=== PATIENT | female | born 1955 | race Caucasian/White ===

== ENCOUNTER → 2019-11-23 | Day surgery (SDC) | payer MEDICARE | LOC: CATHCVL 14:26 | PROVIDERS: ATTEND Internal Medicine Infectious Disease | DX: L03.114 Cellulitis of left upper limb (principal); I10 Essential (primary) hypertension; J44.9 Chronic obstructive pulmonary disease, unspecified; E87.1 Hypo-osmolality and hyponatremia; E66.9 Obesity, unspecified; Z88.1 Allergy status to other antibiotic agents; G62.9 Polyneuropathy, unspecified; Z98.890 Other specified postprocedural states; Z79.51 Long term (current) use of inhaled steroids; Z79.899 Other long term (current) drug therapy; Z91.012 Allergy to eggs; Z88.0 Allergy status to penicillin; Z88.8 Allergy status to other drugs, medicaments and biological substances; Z68.34 Body mass index [BMI] 34.0-34.9, adult; Z80.1 Family history of malignant neoplasm of trachea, bronchus and lung; Z80.0 Family history of malignant neoplasm of digestive organs; Z82.49 Family history of ischemic heart disease and other diseases of the circulatory system | CPT/HCPCS: 36410; 76937; C1751 ==

== ENCOUNTER → 2019-11-27 | Day surgery (SDC) | payer MEDICARE ==
[2019-11-27 14:01] VITALS: BP 170/80; PULSE 67; RESP 16; TEMP 97.8
--- NOTE | 2019-11-27 15:20 | XR ---
EXAMINATION TYPE: XR humerus RT DATE OF EXAM: 11/27/2019 COMPARISON: NONE HISTORY: Broken midline catheter TECHNIQUE: 2 views submitted. FINDINGS: The osseous structures are intact and the joint spaces are preserved. Calcification of soft tissues noted. No midline catheter is seen with certainty. IMPRESSION: 1. No acute osseous abnormality.
--- NOTE | 2019-11-27 15:20 | XR ---
EXAMINATION TYPE: XR chest 1V DATE OF EXAM: 11/27/2019 COMPARISON: NONE HISTORY: Broken midline catheter TECHNIQUE: Single frontal view of the chest is obtained. FINDINGS: A linear changes are seen in the left upper lobe likely related to scar or atelectasis. A central venous catheter appears to be present in the soft tissues adjacent to the left arm extending toward the axilla. Correlate clinically. Assessment for catheter within the heart is limited. No over t failure. No pleural effusion or pneumothorax. Arthropathy of the shoulder. IMPRESSION: 1. Suggestion of possible catheter along the inner margin of the left upper extremity the level of th e biceps. Correlate clinically.
--- NOTE | 2019-11-27 16:11 | XR ---
EXAMINATION TYPE: XR cervical spine limited DATE OF EXAM: 11/27/2019 COMPARISON: NONE HISTORY: Broken midline catheter TECHNIQUE: 2 view submitted FINDINGS: Calcification soft tissue left neck likely related carotid arteries. Cervical spine demonst rate the level C5-6. Mild hypertrophic changes. No metallic foreign body. IMPRESSION: Mild degenerative change
--- NOTE | 2019-11-27 16:11 | XR ---
EXAMINATION TYPE: XR abdomen 1V DATE OF EXAM: 11/27/2019 COMPARISON: NONE HISTORY: Broken midline catheter TECHNIQUE: One view abdominal series FINDINGS: The osseous structures are intact. The bowel gas pattern is nonspecific bowel gas is noted which may limit sensitivity in detecting foreign body. Scoliosis with degenerative change of the spine. There are subsegmental consolidation in the left perihilar region. IMPRESSION: 1. Nonspecific abdomen
--- NOTE | 2019-11-27 16:14 | XR ---
EXAMINATION TYPE: XR femur bilateral DATE OF EXAM: 11/27/2019 CLINICAL HISTORY: Possible broken midline catheter TECHNIQUE: Two views of the bilateral femur are obtained. COMPARISON: None FINDINGS: Concentric narrowing of the hip joint. No metallic foreign body. Soft tissue calcification on the right. Nonspecific density overlying the right femoral head. IMPRESSION: 1. Arthropathy. No metallic foreign body. Nonspecific density overlying the right femoral head for wh ich dedicated right hip series recommended.
--- NOTE | 2019-11-27 16:56 | XR ---
EXAMINATION TYPE: XR Hip Complete RT DATE OF EXAM: 11/27/2019 COMPARISON: NONE HISTORY: Midline catheter TECHNIQUE: 2 views submitted FINDINGS: There is no evidence of erosive change or acute fracture. Mild concentric narrowing the joint space. No definite definite radio metallic foreign body. IMPRESSION: 1. No definite radio metallic foreign body..
== END ==
LOC: CATHCVL 12:59
PROVIDERS: ATTEND Internal Medicine Infectious Disease
DX: Z45.2 Encounter for adjustment and management of vascular access device (principal); T82.514A Breakdown (mechanical) of infusion catheter, initial encounter; L03.114 Cellulitis of left upper limb
CPT/HCPCS: 36410; 76937; 72040; 73502; 73552; 73060; 71045; 74018; C1751

== ENCOUNTER → 2022-08-28 | Outpatient (CLI) | payer MEDICARE ==
[2022-08-28 20:02] LABS: HCT 28.9 % (37.2-46.3); MCH 30.1 pg (27.0-32.0); MCHC 31.1 g/dL (32.0-37.0); MCV 96.7 fL (80.0-97.0); Mean Platelet Volume 10.1 fL (9.5-12.2); NRBC Per 100 WBC 0 /100 WBCS (0.0-0.0); Platelet Count 318 X 10*3/uL (140-440); RBC 2.99 X 10*6/uL (4.10-5.20); RDW 16.7 % (11.5-14.5); WBC 5.76 X 10*3/uL (4.50-10.00)
[2022-08-28 20:11] LABS: African American GFR (CKD) 45.9 (60.0-200.0); Anion Gap 12.1 mmol/L (10.00-18.00); BUN/Creat Ratio 18.14 Ratio (12.00-20.00); Blood Urea Nitrogen 25.4 mg/dL (9.0-27.0); Calcium 8.7 mg/dL (8.7-10.3); Carbon Dioxide 28.9 mmol/L (20.0-27.5); Non-African American GFR(CKD) 39.6 (60.0-200.0); Potassium 3.8 mmol/L (3.5-5.5)
== END ==
LOC: LABWHC1 12:35
PROVIDERS: ATTEND Internal Medicine Cardiovascular Disease
DX: I50.31 Acute diastolic (congestive) heart failure (principal)
CPT/HCPCS: 36415; 80048; 83880; 84443; 85027

== ENCOUNTER 2023-07-02 18:30 | Inpatient (IN) | payer MEDICARE ==
--- NOTE | 2023-07-02 18:51 | ED ---
General Adult HPI - General Source: patient, family, RN notes reviewed Mode of arrival: wheelchair Limitations: no limitations <Billie Field - Last Filed: 07/02/23 18:51> - History of Present Illness -: unknown Consistency: constant Improves with: none Associated Symptoms: confusion <Jim Cummings - Last Filed: 07/02/23 21:53> - General Chief complaint: Weakness Stated complaint: abnormal labs Time Seen by Provider: 07/02/23 18:45 - History of Present Illness Initial comments: This is a 67-year-old female who presents to the emergency department for abnormal labs. Patient states that she was advised by Dr. Mark, cardiology, to come to the emergency department for low potassium and low sodium. Her son states that she's been increasingly weak and confused over the last 4 days. She has had problems with low sodium and potassium in the past, states that this has been an intermittent problem since 2018 and she is unsure why. Denies any chest pain or shortness of breath. Patient does wear oxygen at home. (Billie Field) This is a 67-year-old female to the ER for evaluation of abnormal outpatient lab testing. Patient was told to come to the emergency room for low electrolytes. Patient has been increasingly weak confused and not acting appropriate for a few days now (Jim Cummings) - Related Data Allergies Allergy/AdvReac Type Severity Reaction Status Date / Time cefuroxime [From Ceftin] Allergy Rash/Hives Verified 11/23/19 15:03 ofloxacin [From Floxin] Allergy Rash/Hives Verified 11/23/19 15:03 amoxicillin [From Augmentin] AdvReac Diarrhea Verified 11/23/19 15:03 clavulanic acid AdvReac Diarrhea Verified 11/23/19 15:03 [From Augmentin] Review of Systems ROS Other: All systems not noted in ROS Statement are negative. <Billie Field - Last Filed: 07/02/23 18:51> ROS Other: All systems not noted in ROS Statement are negative. <Jim Cummings - Last Filed: 07/02/23 21:53> ROS Statement: Those systems with pertinent positive or pertinent negative responses have been documented in the HPI. Past Medical History Past Medical History: Heart Failure, COPD, Hyperlipidemia, Hypertension, Renal Disease Additional Past Medical History / Comment(s): liver disease Past Surgical History: Back Surgery, Orthopedic Surgery Additional Past Surgical History / Comment(s): facial reconstructions Smoking Status: Former smoker <Billie Field - Last Filed: 07/02/23 18:51> General Exam Limitations: no limitations <Billie Field - Last Filed: 07/02/23 18:51> General appearance: alert, in no apparent distress Head exam: Present: atraumatic, normocephalic, normal inspection Eye exam: Present: normal appearance, PERRL, EOMI. Absent: scleral icterus, conjunctival injection, periorbital swelling ENT exam: Present: normal exam, mucous membranes moist Neck exam: Present: normal inspection. Absent: tenderness, meningismus, lymphadenopathy Respiratory exam: Present: normal lung sounds bilaterally. Absent: respiratory distress, wheezes, rales, rhonchi, stridor Cardiovascular Exam: Present: regular rate, normal rhythm, normal heart sounds. Absent: systolic murmur, diastolic murmur, rubs, gallop, clicks GI/Abdominal exam: Present: soft, normal bowel sounds. Absent: distended, tenderness, guarding, rebound, rigid Extremities exam: Present: normal inspection, full ROM, normal capillary refill. Absent: tenderness, pedal edema, joint swelling, calf tenderness Back exam: Present: normal inspection Neurological exam: Present: alert, oriented X3, CN II-XII intact Psychiatric exam: Present: normal affect, normal mood Skin exam: Present: warm, dry, intact, normal color. Absent: rash <Jim Cummings - Last Filed: 07/02/23 21:53> - General Exam Comments Initial Comments: Visual Physical Exam Vital signs reviewed General: Well-appearing, nontoxic, no acute distress. Head: Normocephalic, atraumatic Eyes: PERRLA, EOMI ENT: Airway patent Chest: Nonlabored breathing Skin: No visual rash, normal skin tone Neuro: Alert and oriented 3 Musculoskeletal: No gross abnormalities (Billie Field) Course <Jim Cummings - Last Filed: 07/02/23 21:53> Vital Signs 07/02/23 07/02/23 18:36 20:18 Temperature 98.3 F Pulse Rate 87 82 Respiratory 20 18 Rate Blood Pressure 103/63 112/58 O2 Sat by Pulse 99 98 Oximetry - Reevaluation(s) Reevaluation #1: 07/02/23 21:51 Medical record is reviewed (Jim Cummings) Reevaluation #2: 07/02/23 21:51 Patient symptoms unchanged (Jim Cummings) Reevaluation #3: 07/02/23 21:52 Patient informed of results and questions answered (Jim Cummings) Reevaluation #4: Was pt. sent in by a medical professional or institution (, [facility], [facility] [facility], urgent care, hospital, or fdc...) When possible be specific @ -no Did you speak to anyone other than the patient for history (EMS, parent, family, police, friend...)? What history was obtained from this source @ -no Did you review nursing and triage notes (agree or disagree)? Why? @ -agree Are old charts reviewed (outside hosp., previous admission, EMS record, old EKG, old radiological studies, urgent care reports/EKG's, fdc records)? Report findings @ -yes Differential Diagnosis (chest pain, altered mental status, abdominal pain women, abdominal pain men, vaginal bleeding, weakness, fever, dyspnea, syncope, headache, dizziness, GI bleed, back pain, seizure, CVA, palpatations, mental health, musculoskeletal)? @ -prior EKG interpreted by me (3pts min.). @ -yes X-rays interpreted by me (1pt min.). @ -yes negative for acute disease CT interpreted by me (1pt min.). @ -no U/S interpreted by me (1pt. min.). @ -no What testing was considered but not performed or refused? (CT, X-rays, U/S, labs)? Why? @ -none What meds were considered but not given or refused? Why? @ -none Did you discuss the management of the patient with other professionals (professionals i.e. PAULETTE Manriquez, WALL CLEANER, lab, RT, psych nurse, socially responsible investment adviser, box office agent, teacher, forest fire officer, case manager specialist)? Give summary @ -no Was smoking cessation discussed for >3mins.? @ -no Was critical care preformed (if so, how long)? @ -no Were there social determinants of health that impacted care today? How? (Homelessness, low income, unemployed, alcoholism, drug addiction, transportation, low edu. Level, literacy, decrease access to med. care, long-term, rehab)? @ -none Was there de-escalation of care discussed even if they declined (Discuss DNR or withdrawal of care, Hospice)? DNR status @ -no What co-morbidities impacted this encounter? (DM, HTN, Smoking, COPD, CAD, Cancer, CVA, ARF, Chemo, Hep., AIDS, mental health diagnosis, sleep apnea, morbid obesity)? @ -none Was patient admitted / discharged? Hospital course, mention meds given and route, prescriptions, significant lab abnormalities, going to OR and other pertinent info. @ - Undiagnosed new problem with uncertain prognosis? @ -no Drug Therapy requiring intensive monitoring for toxicity (Heparin, Nitro, Insulin, Cardizem)? @ -no Were any procedures done? @ -no Diagnosis/symptom? @ - Acute, or Chronic, or Acute on Chronic? @ -Acute Uncomplicated (without systemic symptoms) or Complicated (systemic symptoms)? @ -Complicated Side effects of treatment? @ -no Exacerbation, Progression, or Severe Exacerbation? @ -exacerbation Poses a threat to life or bodily function? How? (Chest pain, USA, MS, pneumonia, PE, COPD, DKA, ARF, appy, cholecystitis, CVA, Diverticulitis, Homicidal, Suicidal, threat to staff... and all critical care pts) @ -yes (Jim Cummings) Reevaluation #5: Differential Altered Mental Status: Hypoglycemia, DKA, hypercapnia, ETOH, overdose, CO poisoning, trauma, myxedema coma, HTN encephalopathy, infection, encephalitis, psychosis, intercranial hemorrhage, hepatic encephalopathy, meningitis, CVA, this is not meant to be an all-inclusive list (Jim Cummings) - Consultations Consultation #1: Spoke with Dr. Nair who agrees to admit this patient (Jim Cummings) Medical Decision Making <Billie Field - Last Filed: 07/02/23 18:51> - Lab Data Result diagrams: 07/02/23 18:53 07/02/23 18:53 - Radiology Data Radiology results: report reviewed (CT of the abdomen pelvis as well as ultrasound renals and bladder are negative for acute disease), image reviewed <Jim Cummings - Last Filed: 07/02/23 21:53> - Medical Decision Making I performed the QuickNote portion of this chart. Signed Billie Field PA-C. (Billie Field) 67 female will be admitted for altered mental status and new acute kidney injury acute renal failure significant elevated BUN and creatinine with low sodium and low potassium (Jim Cummings) - Lab Data Lab Results 07/02/23 07/02/23 07/02/23 Range/Units 18:53 18:53 18:53 WBC 30.1 H (3.8-10.6) k/uL RBC 3.01 L (3.80-5.40) m/uL Hgb 9.6 L (11.4-16.0) gm/dL Hct 29.1 L (34.0-46.0) % MCV 96.7 (80.0-100.0) fL MCH 31.8 (25.0-35.0) pg MCHC 32.9 (31.0-37.0) g/dL RDW 12.8 (11.5-15.5) % Plt Count 315 (150-450) k/uL MPV 7.6 Neutrophils % (Manual) 95 % Lymphocytes % (Manual) 2 % Monocytes % (Manual) 2 % Eosinophils % (Manual) 1 % Neutrophils # (Manual) 28.60 H (1.3-7.7) k/uL Lymphocytes # (Manual) 0.60 L (1.0-4.8) k/uL Monocytes # (Manual) 0.60 (0-1.0) k/uL Eosinophils # (Manual) 0.30 (0-0.7) k/uL Nucleated RBCs 0 (0-0) /100 WBC Manual Slide Review Performed PT 10.0 (10.0-12.5) sec INR 0.9 (<1.2) APTT 26.1 (22.0-30.0) sec Sodium 129 L (137-145) mmol/L Potassium 3.2 L (3.5-5.1) mmol/L Chloride 90 L (98-107) mmol/L Carbon Dioxide 29 (22-30) mmol/L Anion Gap 10 mmol/L BUN 126 H* (7-17) mg/dL Creatinine 2.35 H (0.52-1.04) mg/dL Est GFR (CKD-EPI)AfAm 24 (>60 ml/min/1.73 sqM) Est GFR (CKD-EPI)NonAf 21 (>60 ml/min/1.73 sqM) Glucose 126 H (74-99) mg/dL Plasma Lactic Acid Jordin (0.7-2.0) mmol/L Calcium 9.1 (8.4-10.2) mg/dL Phosphorus 3.7 (2.5-4.5) mg/dL Magnesium 1.4 L (1.6-2.3) mg/dL Total Bilirubin 0.5 (0.2-1.3) mg/dL AST 23 (14-36) U/L ALT 13 (4-34) U/L Alkaline Phosphatase 94 (38-126) U/L Troponin I (0.000-0.034) ng/mL Total Protein 6.7 (6.3-8.2) g/dL Albumin 3.8 (3.5-5.0) g/dL Urine Color Urine Appearance (Clear) Urine pH (5.0-8.0) Ur Specific [place] (1.001-1.035) Urine Protein (Negative) Urine Glucose (UA) (Negative) Urine Ketones (Negative) Urine Blood (Negative) Urine Nitrite (Negative) Urine Bilirubin (Negative) Urine Urobilinogen (<2.0) mg/dL Ur Leukocyte Esterase (Negative) Urine RBC (0-5) /hpf Urine WBC (0-5) /hpf Urine Bacteria (None) /hpf 07/02/23 07/02/23 07/02/23 Range/Units 18:53 18:53 21:06 WBC (3.8-10.6) k/uL RBC (3.80-5.40) m/uL Hgb (11.4-16.0) gm/dL Hct (34.0-46.0) % MCV (80.0-100.0) fL MCH (25.0-35.0) pg MCHC (31.0-37.0) g/dL RDW (11.5-15.5) % Plt Count (150-450) k/uL MPV Neutrophils % (Manual) % Lymphocytes % (Manual) % Monocytes % (Manual) % Eosinophils % (Manual) % Neutrophils # (Manual) (1.3-7.7) k/uL Lymphocytes # (Manual) (1.0-4.8) k/uL Monocytes # (Manual) (0-1.0) k/uL Eosinophils # (Manual) (0-0.7) k/uL Nucleated RBCs (0-0) /100 WBC Manual Slide Review PT (10.0-12.5) sec INR (<1.2) APTT (22.0-30.0) sec Sodium (137-145) mmol/L Potassium (3.5-5.1) mmol/L Chloride (98-107) mmol/L Carbon Dioxide (22-30) mmol/L Anion Gap mmol/L BUN (7-17) mg/dL Creatinine (0.52-1.04) mg/dL Est GFR (CKD-EPI)AfAm (>60 ml/min/1.73 sqM) Est GFR (CKD-EPI)NonAf (>60 ml/min/1.73 sqM) Glucose (74-99) mg/dL Plasma Lactic Acid Jordin 0.8 (0.7-2.0) mmol/L Calcium (8.4-10.2) mg/dL Phosphorus (2.5-4.5) mg/dL Magnesium (1.6-2.3) mg/dL Total Bilirubin (0.2-1.3) mg/dL AST (14-36) U/L ALT (4-34) U/L Alkaline Phosphatase (38-126) U/L Troponin I 0.066 H* (0.000-0.034) ng/mL Total Protein (6.3-8.2) g/dL Albumin (3.5-5.0) g/dL Urine Color Colorless Urine Appearance Clear (Clear) Urine pH 6.0 (5.0-8.0) Ur Specific [place] 1.009 (1.001-1.035) Urine Protein Negative (Negative) Urine Glucose (UA) Negative (Negative) Urine Ketones Negative (Negative) Urine Blood Negative (Negative) Urine Nitrite Negative (Negative) Urine Bilirubin Negative (Negative) Urine Urobilinogen <2.0 (<2.0) mg/dL Ur Leukocyte Esterase Small H (Negative) Urine RBC <1 (0-5) /hpf Urine WBC 6 H (0-5) /hpf Urine Bacteria Rare H (None) /hpf Disposition <Billie Field - Last Filed: 07/02/23 18:51> Is patient prescribed a controlled substance at d/c from ED?: No Time of Disposition: 22:00 <Jim Cummings - Last Filed: 07/02/23 21:53> Clinical Impression: Acute renal failure, Dehydration, Hyponatremia, Hypokalemia, MAXINE (acute kidney injury), Altered mental state Disposition: ADMITTED IP TO THIS HOSP Condition: Fair Referrals: Mike Champion MD [Primary Care Provider] - 1-2 days
[2023-07-02 19:05] LABS: HCT 29.1 % (34.0-46.0); HGB 9.6 gm/dL (11.4-16.0); MCH 31.8 pg (25.0-35.0); MCHC 32.9 g/dL (31.0-37.0); MCV 96.7 fL (80.0-100.0); Mean Platelet Volume 7.6; Platelet Count 315 k/uL (150-450); RBC 3.01 m/uL (3.80-5.40); RDW 12.8 % (11.5-15.5); WBC 30.1 k/uL (3.8-10.6)
[2023-07-02 19:14] LABS: ALT 13 U/L (4-34); AST 23 U/L (14-36); African American GFR (CKD) 24 (>60 ml/min/1.73 sqM); Albumin 3.8 g/dL (3.5-5.0); Alkaline Phosphatase 94 U/L (38-126); Anion Gap 10 mmol/L; Calcium 9.1 mg/dL (8.4-10.2); Carbon Dioxide 29 mmol/L (22-30); Chloride 90 mmol/L (98-107); Glucose 126 mg/dL (74-99); Magnesium 1.4 mg/dL (1.6-2.3); Non-African American GFR(CKD) 21 (>60 ml/min/1.73 sqM); Phosphorus 3.7 mg/dL (2.5-4.5); Potassium 3.2 mmol/L (3.5-5.1); Sodium 129 mmol/L (137-145); Total Bilirubin 0.5 mg/dL (0.2-1.3); Total Protein 6.7 g/dL (6.3-8.2)
[2023-07-02 19:19] LABS: INR 0.9 (<1.2); Partial Thromboplastin Time 26.1 sec (22.0-30.0)
--- NOTE | 2023-07-02 19:24 | XR ---
EXAMINATION TYPE: XR chest 2V DATE OF EXAM: 07/02/2023 COMPARISON: 11/27/2019 HISTORY: 67-year-old female with weakness, critically low sodium and potassium. TECHNIQUE: AP and lateral views FINDINGS: Low lung volumes with crowded vascular markings. There appear to be old healed fracture deformities r ight lateral chest wall, new from 2019. Interstitial density is increased. Low lung volumes. Borderli ne heart size. No consolidation or pleural effusion. IMPRESSION: Increased interstitial markings may in part relate to vascular crowding from hypoventilatory changes. Correlate to exclude mild pulmonary vascular congestion.
[2023-07-02 19:27] LABS: Blood Urea Nitrogen 126 mg/dL (7-17)
[2023-07-02 19:37] LABS: Neutrophils % (M) 95 %; Nucleated Red Blood Cells 0 /100 WBC (0-0); Total Cells Counted 100
--- NOTE | 2023-07-02 20:22 | CT ---
EXAMINATION TYPE: CT abdomen pelvis wo con DATE OF EXAM: 07/02/2023 COMPARISON: None HISTORY: 67-year-old female confusion, weakness and abdominal pain CT DLP: 760.8 mGycm. Automated exposure control for dose reduction was used. TECHNIQUE: Contiguous axial scanning of the abdomen and pelvis without IV contrast. Coronal and sagit ro reconstructions performed. FINDINGS: Heart upper limits of normal in size without pericardial effusion. Subpleural thickening posterolater al left lung base probably pleural parenchymal scarring. Reassess in 3 month follow-up to ensure stab ility. Small fat-containing right Bochdalek hernia. Noncontrast appearance of the liver, adrenal glands, spleen, and pancreas show no gross abnormality. Lobulated bilateral renal contours without hydronephrosis. Borderline hydropic gallbladder measuring 4.0 cm wide with a couple gallstones measuring 7 mm and 4 m m. No surrounding inflammation. No dilated small bowel, free fluid, or free air. No mesenteric or retroperitoneal lymphadenopathy. Moderate scattered stool. No pericolonic inflammatory change. Bladder is urine distended. Uterus anteverted. Suspected visualization of the right ovary. Left ovary not well delineated due to adjacent clustered bowel loops. No abnormal fluid collection in the pelvis. Pelvic phleboliths. Prominent bilateral inguinal lymph nodes. A bulky node right inguinal region/upper femoral chain leodan ures up to 6.3 x 2.9 cm, coronal image 44. Degenerated dextroconvex scoliosis of the lumbar spine. Mild anterior wedge deformity of T11 has a ch ronic appearance. IMPRESSION: 1. Bilateral inguinal adenopathy. A lymph node in the right inguinal and upper femoral canal chain m easures up to 6.3 x 2.9 cm. These may be reactive/post inflammatory. Correlate with physical exam fin dings and clinical follow-up to determine the need for tissue sampling and exclude a neoplastic etiol ogy. 2. Cholelithiasis measuring up to 7 mm. 3. Some subpleural soft tissue thickening at the posteromedial left lung base, probably pleural pare nchymal scarring. Three-month follow-up to ensure stability. 4. Degenerated dextroconvex scoliosis of the lumbar spine.
--- NOTE | 2023-07-02 21:18 | US ---
EXAMINATION TYPE: US renals and bladder DATE OF EXAM: 07/02/2023 COMPARISON: CT 07/02/2023 CLINICAL INDICATION: Female, 67 years old with history of pain; Pt states told her she was in bunny al failure EXAM MEASUREMENTS: Right Kidney: 9.1 x 3.8 x 4.8 cm Left Kidney: 10.9 x 5.0 x 4.2 cm Photoengraving Supervisor notes: Left kidney limited due to having to scan from the left side of bed . Also, akhtar ited due to patient body habitus. Right Kidney: No hydronephrosis or masses seen Left Kidney: No hydronephrosis or masses seen Limited detail parenchymal assessment. Bladder: Partial distention limits its evaluation. Bilateral Jets seen: No IMPRESSION: Limited detailed parenchymal assessment of the kidneys. No obvious hydronephrosis.
[2023-07-02 21:26] LABS: Appearance,Urine Clear (Clear); Bacteria,Urine Rare /hpf; Bilirubin,Urine Negative (Negative); Blood,Urine Negative (Negative); Color,Urine Colorless; Glucose,Urine (UA) Negative (Negative); Ketones,Urine Negative (Negative); Leukocyte Esterase,Urine Small (Negative); Nitrite,Urine Negative (Negative); Protein,Urine Negative (Negative); RBC,Urine <1 /hpf (0-5); Specific Gravity,Urine 1.009 (1.001-1.035); Urobilinogen,Urine <2.0 mg/dL (<2.0); WBC,Urine 6 /hpf (0-5)
[2023-07-02] MEDS ORDERED: ONDANSETRON 4 MG/2 ML VIAL IVP PRN (21:48)
[2023-07-02] MEDS ORDERED: NALOXONE 0.4 MG/ML 1 ML VIAL IV PRN (21:48)
[2023-07-02] MEDS ORDERED: MORPHINE SULFATE 4 MG/ML SYRINGE IV PRN (21:48)
[2023-07-02] MEDS ORDERED: LEVOFLOXACIN 750MG-D5W PMX 750 MG in DEXTROSE/WATER 1 150ML.BAG IVPB STA (21:53)
[2023-07-02] MEDS ORDERED: LEVOFLOXACIN 750MG-D5W PMX 750 MG in DEXTROSE/WATER 1 150ML.BAG IVPB SCH (22:00)
[2023-07-02] MEDS: SODIUM CHLORIDE 0.9% 1,000 ML IV SCH (23:08)
[2023-07-02] MEDS: MEROPENEM 2 GM in SODIUM CHLORIDE 0.9% 100 ML IVPB STA (23:10)
[2023-07-02] MEDS: HYDROcodone/APAP 10-325MG 1 EACH TAB PO PRN (23:13)
[2023-07-02] MEDS: GABAPENTIN 300 MG CAP PO SCH (23:14)
[2023-07-02] MEDS: NON FORMULARY DRUG (Hydroxyzine Hcl [Atarax] 50 MG Tablet) PO SCH (23:41)
[2023-07-02] MEDS: POTASSIUM CHLORIDE ER 10 MEQ TAB.ER.PRT PO SCH (23:41)
[2023-07-03 07:15] LABS: Basophils % (A) 0 %; Eosinophils # (A) 0.1 k/uL (0-0.7); Eosinophils % (A) 1 %; HCT 27.2 % (34.0-46.0); HGB 8.8 gm/dL (11.4-16.0); Lymphocytes # (A) 0.8 k/uL (1.0-4.8); Lymphocytes % (A) 5 %; MCH 31.7 pg (25.0-35.0); MCHC 32.5 g/dL (31.0-37.0); MCV 97.5 fL (80.0-100.0); Mean Platelet Volume 7.3; Monocytes # (A) 0.4 k/uL (0-1.0); Monocytes % (A) 2 %; Neutrophils # (A) 15.8 k/uL (1.3-7.7); Neutrophils % (A) 92 %; Platelet Count 269 k/uL (150-450); RBC 2.79 m/uL (3.80-5.40); RDW 12.8 % (11.5-15.5); WBC 17.3 k/uL (3.8-10.6)
[2023-07-03 07:27] LABS: ALT 11 U/L (4-34); AST 21 U/L (14-36); African American GFR (CKD) 25 (>60 ml/min/1.73 sqM); Albumin 3.2 g/dL (3.5-5.0); Alkaline Phosphatase 108 U/L (38-126); Anion Gap 8 mmol/L; Calcium 8.6 mg/dL (8.4-10.2); Carbon Dioxide 29 mmol/L (22-30); Chloride 95 mmol/L (98-107); Glucose 144 mg/dL (74-99); Magnesium 1.3 mg/dL (1.6-2.3); Non-African American GFR(CKD) 22 (>60 ml/min/1.73 sqM); Phosphorus 3.2 mg/dL (2.5-4.5); Sodium 132 mmol/L (137-145); Total Bilirubin 0.3 mg/dL (0.2-1.3); Total Protein 5.9 g/dL (6.3-8.2)
[2023-07-03 07:30] LABS: Blood Urea Nitrogen 113 mg/dL (7-17); Potassium 2.6 mmol/L (3.5-5.1)
[2023-07-03] MEDS: SYMBICORT 80-4.5 MCG INHALER INHALATION SCH (07:54)
[2023-07-03] MEDS: POTASSIUM CHLORIDE ER 20 MEQ TAB.ER PO SCH (08:17)
[2023-07-03] MEDS ORDERED: SODIUM CHLORIDE TAB 1 GM TAB PO SCH (09:00)
[2023-07-03] MEDS ORDERED: metOLazone 2.5 MG TAB PO SCH (09:00)
[2023-07-03] MEDS ORDERED: LOSARTAN 50 MG TAB PO SCH (09:00)
[2023-07-03] MEDS ORDERED: TORSEMIDE 20 MG TAB PO SCH (09:00)
[2023-07-03] MEDS: PANTOPRAZOLE 40 MG/10 ML VIAL IV SCH (09:10)
[2023-07-03] MEDS: allopurinoL 100 MG TAB PO SCH (09:11)
[2023-07-03] MEDS: FERROUS SULFATE 325 MG TAB PO SCH (09:11)
[2023-07-03] MEDS: PANTOPRAZOLE 40 MG TABLET PO SCH (09:11)
[2023-07-03] MEDS: DOCUSATE 100 MG CAP PO SCH (09:11)
[2023-07-03] MEDS ORDERED: NON FORMULARY DRUG (Omeprazole [Omeprazole] 20 MG Capsule.Dr) PO PRN (09:49)
--- NOTE | 2023-07-03 11:20 | P.CRDCN ---
History of Present Illness Consult date: 07/03/23 Reason for Consult (text): known patient History of present illness: History of present illness: This is a 67-year-old female patient of Dr. Laurita Mark with past medical history of COPD, chronic hypoxic respiratory failure on home O2, chronic diastolic heart failure, hypertension. Patient was recently seen in the office on June 11 at which time she had weight gain and she was advised to resume metolazone and continue Demadex and lab work was obtained which was abnormal and when this was reported back, patient was contacted, to the hospital for further evaluation and treatment. Patient states that she is feeling well but has been extremely weak and may be some confusion per the family. Patient has been started on IV fluids at 130 cc/h. She is seen today in the emergency center waiting for bed to cardiac stepdown unit. Nephrology is also on consult. Chest x-ray: Increased interstitial markings may be in part related to vascular crowding from hypoventilatory changes. CT of the abdomen pelvis without contrast revealed bilateral inguinal adenopathy. Cholelithiasis. Soft tissue thickening of the posterior medial left lung base probably pleural-parenchymal scarring. Renal ultrasound was limited detailed proximal assessment of the kidneys. No obvious hydronephrosis. Initial WBC 30.1 and now 17.3, hemoglobin 8.8, platelet count 269. Initial sodium 129 now 132, potassium is 2.6, chloride 95, BUN initially 126 now 113 and creatinine initially 2.35 followed by 2.29. Blood sugar 144. Lactic acid was 0.8. Magnesium 1.4 and 1.3. Troponin 0.066. Liver function tests essentially normal. Home cardiac medications: Losartan 50 mg daily, metolazone 2.5 mg twice daily, torsemide 40 mg daily, sodium chloride tabs 1 g daily, potassium chloride 60 mEq daily. Review Of Systems: At the time of my exam: CONSTITUTIONAL: Denies fever or chills. HEENT: Denies blurred vision, vision changes, or eye pain. Denies hemoptysis CARDIOVASCULAR: Denies chest pain. Denies orthopnea. Denies PND. Denies palpitations RESPIRATORY: Denies shortness of breath. GASTROINTESTINAL: Denies abdominal pain. Denies nausea or vomiting. HEMATOLOGIC: Denies bleeding disorders. GENITOURINARY: Denies any blood in urine. SKIN: Denies pruitis. Denies rash. Physical examination: Gen: This is a 67-year-old female appears to be in no acute distress. VS: reviewed blood pressure 172/82, heart rate 84, pulse ox 96% on 2 L nasal cannula. HEENT: Head is atraumatic, normocephalic. Pupils equal, round. Sclerae is anicteric. NECK: Supple. No JVD. LUNGS: Clear to auscultation. No wheezes or rhonchi. No intercostal retractions. HEART: Regular rate and rhythm. No murmur. ABDOMEN: Soft No tenderness. EXTREMITIES: No pedal edema. No calf tenderness. NEUROLOGICAL: Patient is awake, alert and oriented x3. Assessment: Electrolyte abnormalities with hyponatremia, hypokalemia, hypomagnesemia Acute kidney injury Leukocytosis of unclear etiology Chronic diastolic heart failure Hypertension COPD Chronic hypoxic respiratory failure on home O2 Plan: Continue IV fluids at 130 cc/h Resume patient's home cardiac medications Obtain 2-D echocardiogram and Doppler study to assess cardiac structure and function Further recommendations to follow based upon clinical course Thank you kindly for this consultation. Nurse practitioner note has been reviewed, I agree with documented findings and plan of care. Patient was seen and examined. Past Medical History Past Medical History: Heart Failure, COPD, Hyperlipidemia, Hypertension, Renal Disease Additional Past Medical History / Comment(s): liver disease Past Surgical History: Back Surgery, Orthopedic Surgery Additional Past Surgical History / Comment(s): facial reconstructions Smoking Status: Former smoker Medications and Allergies Home Medications Medication Instructions Recorded Confirmed Type Docusate [Colace] 100 mg PO TID 07/02/23 07/02/23 History Ferrous Sulfate [Feosol] 325 mg PO DAILY 07/02/23 07/02/23 History Fluticasone/Umeclidin/Vilanter 1 puff INHALATION RT-DAILY 07/02/23 07/03/23 History [Trelegy Ellipta 100-62.5-25] Gabapentin [Neurontin] 300 mg PO BID 07/02/23 07/02/23 History HYDROcodone/APAP 10-325MG [[place] 1 tab PO QID PRN 07/02/23 07/02/23 History 10-325] LORazepam [Ativan] 0.5 mg PO DAILY PRN 07/02/23 07/02/23 History Losartan Potassium 50 mg PO DAILY 07/02/23 07/03/23 History Multivit-Min/FA/Lycopen/Lutein 1 tab PO DAILY 07/02/23 07/02/23 History [Centrum Silver Tablet] Omeprazole 40 mg PO DAILY PRN 07/02/23 07/02/23 History Pantoprazole [Protonix] 40 mg PO DAILY 07/02/23 07/03/23 History Potassium Chloride ER [K-Dur 10] 60 meq PO W/BRKFST 07/02/23 07/03/23 History Sodium Chloride Tab 1 gm PO DAILY 07/02/23 07/02/23 History Torsemide [Soaanz] 40 mg PO DAILY 07/02/23 07/03/23 History allopurinoL [Zyloprim] 100 mg PO DAILY 07/02/23 07/03/23 History hydrOXYzine HCL [Atarax] 50 mg PO TID 07/02/23 07/03/23 History metOLazone [Zaroxolyn] 2.5 mg PO BID 07/02/23 07/03/23 History methocarbamoL 500 mg PO TID PRN 07/02/23 07/03/23 History Allergies Allergy/AdvReac Type Severity Reaction Status Date / Time cefuroxime [From Ceftin] Allergy Rash/Hives Verified 07/02/23 22:34 ofloxacin [From Floxin] Allergy Rash/Hives Verified 07/02/23 22:34 amoxicillin [From Augmentin] AdvReac Diarrhea Verified 07/02/23 22:34 clavulanic acid AdvReac Diarrhea Verified 07/02/23 22:34 [From Augmentin] Physical Exam Vitals: Vital Signs Temp Pulse Resp BP Pulse Ox 07/03/23 07:56 96 07/03/23 05:45 79 16 140/61 98 07/03/23 04:38 75 16 149/69 97 07/03/23 01:19 78 26 H 134/72 94 L 07/02/23 23:11 77 18 144/68 95 07/02/23 20:18 82 18 112/58 98 07/02/23 18:36 98.3 F 87 20 103/63 99 Intake and Output 07/02/23 07/03/23 07/03/23 22:59 06:59 14:59 Other: Weight 86.183 kg Results 07/03/23 06:51 07/03/23 06:57 Cardiac Enzymes 07/02/23 07/02/23 07/03/23 Range/Units 18:53 18:53 06:57 AST 23 21 (14-36) U/L Troponin I 0.066 H* (0.000-0.034) ng/mL Coagulation 07/02/23 Range/Units 18:53 PT 10.0 (10.0-12.5) sec APTT 26.1 (22.0-30.0) sec CBC 07/02/23 07/03/23 Range/Units 18:53 06:51 WBC 30.1 H 17.3 H (3.8-10.6) k/uL RBC 3.01 L 2.79 L (3.80-5.40) m/uL Hgb 9.6 L 8.8 L (11.4-16.0) gm/dL Hct 29.1 L 27.2 L (34.0-46.0) % Plt Count 315 269 (150-450) k/uL Comprehensive Metabolic Panel 07/02/23 07/03/23 Range/Units 18:53 06:57 Sodium 129 L 132 L (137-145) mmol/L Potassium 3.2 L 2.6 L* (3.5-5.1) mmol/L Chloride 90 L 95 L (98-107) mmol/L Carbon Dioxide 29 29 (22-30) mmol/L BUN 126 H* 113 H* (7-17) mg/dL Creatinine 2.35 H 2.29 H (0.52-1.04) mg/dL Glucose 126 H 144 H (74-99) mg/dL Calcium 9.1 8.6 (8.4-10.2) mg/dL AST 23 21 (14-36) U/L ALT 13 11 (4-34) U/L Alkaline Phosphatase 94 108 (38-126) U/L Total Protein 6.7 5.9 L (6.3-8.2) g/dL Albumin 3.8 3.2 L (3.5-5.0) g/dL Current Medications Generic Name Dose Route Start Last Admin Trade Name Freq PRN Reason Stop Dose Admin Hydrocodone Bitart/Acetaminophen 1 each 07/02/23 23:02 07/02/23 23:13 Hydrocodone/Apap 10-325mg 1 Each Tab PO 1 each QID PRN Administration Pain Allopurinol 100 mg 07/03/23 09:00 Allopurinol 100 Mg Tab PO DAILY [facility] Budesonide/Formoterol Fumarate 2 puff 07/03/23 08:00 07/03/23 07:54 Symbicort 80-4.5 Mcg Inhaler INHALATION 2 puff RT-BID [facility] Administration Docusate Sodium 100 mg 07/03/23 09:00 Docusate 100 Mg Cap PO TID [facility] Ferrous Sulfate 325 mg 07/03/23 09:00 Ferrous Sulfate 325 Mg Tab PO DAILY [facility] Gabapentin 300 mg 07/02/23 23:15 07/02/23 23:14 Gabapentin 300 Mg Cap PO 300 mg BID MARGARITA Administration Sodium Chloride 1,000 mls @ 130 mls/hr 07/02/23 22:00 07/03/23 05:42 Saline 0.9% IV Not Given .Q7H42M [facility] Morphine Sulfate 4 mg 07/02/23 21:48 Morphine Sulfate 4 Mg/Ml Syringe IV Q4HR PRN Severe Pain (Scale 7 to 10) Multivitamins/Minerals 1 each 07/03/23 09:00 Vit A,C & G-Cahufv-[id number] 1 Each Tab PO DAILY [facility] Naloxone HCl 0.2 mg 07/02/23 21:48 Naloxone 0.4 Mg/Ml 1 Ml Vial IV Q2M PRN Opioid Reversal Non-Formulary Medication 50 mg 07/02/23 23:15 07/02/23 23:41 Hydroxyzine Hcl [Atarax] PO Not Given DIRECTED [facility] Ondansetron HCl 4 mg 07/02/23 21:48 Ondansetron 4 Mg/2 Ml Vial IVP Q8HR PRN Nausea And Vomiting Pantoprazole Sodium 40 mg 07/03/23 09:00 Pantoprazole 40 Mg/10 Ml Vial IV DAILY [facility] Pantoprazole Sodium 40 mg 07/03/23 09:00 Pantoprazole 40 Mg Tablet PO DAILY [facility] Potassium Chloride 40 meq 07/03/23 08:00 Potassium Chloride Er 20 Meq Tab.Er PO 07/03/23 10:01 Q2HR MARGRAITA Intake and Output 07/02/23 07/03/23 07/03/23 22:59 06:59 14:59 Other: Weight 86.183 kg 07/03/23 06:51 07/03/23 06:57
[2023-07-03] MEDS: SODIUM CHLORIDE 0.9% 1,000 ML IV SCH (11:45)
[2023-07-03] MEDS: VIT A,C & E-LUTEIN-MINERALS 1 EACH TAB PO SCH (11:49)
--- NOTE | 2023-07-03 12:02 | P.NPCON ---
History of Present Illness - Reason for Consult acute renal failure, chronic renal failure - History of Present Illness Reason for consultation: Acute kidney injury on chronic kidney disease History of present illness: Patient is a 67-year-old female seen in renal consultation for acute kidney injury on chronic kidney disease. Patient's creatinine in August 2022 was 1.4. This admission was 2.35 and is 2.29 today. Patient came to the hospital due to abnormal labs. She was sent by her multi skilled operator due to hyponatremia and hypokalemia. Patient has been feeling weak over the last 3 to 4 days. Patient has history of diastolic CHF with pulmonary hypertension. She was following with cardiology outpatient and was maintained on Demadex 20 mg twice daily as well as metolazone twice daily. Patient sodium on admission was 129 and is now 132. Potassium is low and is being replaced. Magnesium also low and being replaced. UA is noted to be benign. She denies chest pain or shortness of breath. No edema at this time. Denies vomiting or diarrhea. Denies history of diabetes. Denies history of coronary artery disease. Denies history of malignancy. She does admit to taking Motrin 2-4 tabs daily for pain. She also admits to drinking at least a gallon of fluid every day. She is currently on a nasal cannula. Denies hematuria or dysuria. Vital signs are stable. General: No acute distress. HEENT: Head exam is unremarkable. On nasal cannula. LUNGS: No audible rhonchi or wheezes. HEART: Rate and Rhythm are regular. ABDOMEN: Nontender. EXTREMITITES: No edema. Lower extremities wrapped. No drainage. Past Medical History Past Medical History: Heart Failure, COPD, Hyperlipidemia, Hypertension, Renal Disease Additional Past Medical History / Comment(s): liver disease Past Surgical History: Back Surgery, Orthopedic Surgery Additional Past Surgical History / Comment(s): facial reconstructions Smoking Status: Former smoker Medications and Allergies Home Medications Medication Instructions Recorded Confirmed Type Docusate [Colace] 100 mg PO TID 07/02/23 07/02/23 History Ferrous Sulfate [Feosol] 325 mg PO DAILY 07/02/23 07/02/23 History Fluticasone/Umeclidin/Vilanter 1 puff INHALATION RT-DAILY 07/02/23 07/03/23 History [Trelegy Ellipta 100-62.5-25] Gabapentin [Neurontin] 300 mg PO BID 07/02/23 07/02/23 History HYDROcodone/APAP 10-325MG [[place] 1 tab PO QID PRN 07/02/23 07/02/23 History 10-325] LORazepam [Ativan] 0.5 mg PO DAILY PRN 07/02/23 07/02/23 History Multivit-Min/FA/Lycopen/Lutein 1 tab PO DAILY 07/02/23 07/02/23 History [Centrum Silver Tablet] Pantoprazole [Protonix] 40 mg PO DAILY 07/02/23 07/03/23 History Potassium Chloride ER [K-Dur 10] 60 meq PO W/BRKFST 07/02/23 07/03/23 History RX: Losartan Potassium 50 mg PO DAILY 07/02/23 07/03/23 History RX: Omeprazole 40 mg PO DAILY PRN 07/02/23 07/02/23 History RX: Sodium Chloride Tab 1 gm PO DAILY 07/02/23 07/02/23 History RX: methocarbamoL 500 mg PO TID PRN 07/02/23 07/03/23 History Torsemide [Soaanz] 40 mg PO DAILY 07/02/23 07/03/23 History allopurinoL [Zyloprim] 100 mg PO DAILY 07/02/23 07/03/23 History hydrOXYzine HCL [Atarax] 50 mg PO TID 07/02/23 07/03/23 History metOLazone [Zaroxolyn] 2.5 mg PO BID 07/02/23 07/03/23 History Allergies Allergy/AdvReac Type Severity Reaction Status Date / Time cefuroxime [From Ceftin] Allergy Rash/Hives Verified 07/02/23 22:34 ofloxacin [From Floxin] Allergy Rash/Hives Verified 07/02/23 22:34 amoxicillin [From Augmentin] AdvReac Diarrhea Verified 07/02/23 22:34 clavulanic acid AdvReac Diarrhea Verified 07/02/23 22:34 [From Augmentin] Physical Exam Vitals: Vital Signs Temp Pulse Resp BP Pulse Ox 07/03/23 08:22 84 18 172/82 98 07/03/23 07:56 96 07/03/23 05:45 79 16 140/61 98 07/03/23 04:38 75 16 149/69 97 07/03/23 01:19 78 26 H 134/72 94 L 07/02/23 23:11 77 18 144/68 95 07/02/23 20:18 82 18 112/58 98 07/02/23 18:36 98.3 F 87 20 103/63 99 Intake and Output 07/02/23 07/03/23 07/03/23 22:59 06:59 14:59 Other: Weight 86.183 kg Results - Lab Results Most recent lab results Calcium 8.6 mg/dL (8.4-10.2) 07/03/23 06:57 Phosphorus 3.2 mg/dL (2.5-4.5) 07/03/23 06:57 Magnesium 1.3 mg/dL (1.6-2.3) L 07/03/23 06:57 07/03/23 06:51 07/03/23 06:57 Assessment and Plan Plan: Assessment: 1. Acute kidney injury secondary to ATN secondary to diuresis/hypovolemia. Creatinine stable at 2.29 today. UA benign. No hydronephrosis noted on imaging. 2. Chronic kidney disease stage IIIa with baseline creatinine 1.4 in August 2022. Etiology is nephrosclerosis. 3. Hypokalemia from diuresis and hypomagnesemia. 4. Hypomagnesemia from diuresis. 5. Hypovolemic hyponatremia improving with IV hydration. 6. Chronic diastolic CHF. 7. Hypertension with chronic kidney disease. Plan: Maintain IV fluids. Stop Cozaar. Stop all diuretics. Replace potassium and magnesium. Repeat BMP this afternoon. Avoid nephrotoxins. Continue to monitor renal function and urine output. Follow-up echocardiogram. Add amlodipine 5 mg once daily. Hold for systolic blood pressure less than 120. Thank you for the consultation. I will continue to follow the patient with you during her hospital stay.
[2023-07-03] MEDS: LACTATED RINGERS 1,000 ML IV SCH (13:24)
[2023-07-03] MEDS: MAGNESIUM SULFATE-D5W PMX 1 GM in DEXTROSE/WATER 1 100ML.BAG IVPB SCH (13:24)
[2023-07-03] MEDS: amLODIPine 5 MG TAB PO SCH (14:28)
--- NOTE | 2023-07-03 15:45 | P.CONS ---
History of Present Illness - Reason for Consult Consult date: 07/03/23 leukocytosis Requesting physician: Jim Cummings - Chief Complaint weakness, confusion, abn labs - History of Present Illness Mrs. Poon is a 67-year-old female we have been asked to see in regards to leukocytosis. WBCs 30.1 on admit, 17.3 today. ANC 15.8. Hemoglobin 8.8 with normal RBC indices, platelets 269,000. Patient denies any knowledge of abnormal labs other than anemia, she states that she has tried taking iron in the past but this makes her constipated. Patient is reporting recent progressive weakness, confusion. She has had abnormal sodium since 2018, potassium has recently been coming back abnormal on testing. Abnormal labs are what prompted her to be sent to the ED by Ms [employer] Dr. Mark. Sodium 129, potassium 3.2. Patient's renal function was also noted to be significantly impaired BUN 113, creatinine 2.29, at baseline patient has normal renal function. She had renal ultrasound that did not show any hydronephrosis. She had a CT of the abdomen and pelvis without contrast showing bilateral inguinal lymphadenopathy. Patient states that her health has started to decline over the last several years, worse this past year. Her diagnosis of congestive heart failure and COPD has been within the last 2 years, she is on oxygen 10/12 the last year. She quit smoking in May 2021 she smoked 1 pack a day for 45 years. She has had a mammogram at least in the past 2 years, she had a colonoscopy once. She denies any acute changes in her breathing, chest pain, recent illnesses. Denies unintentional weight loss, actually reports weight gain- she is on diuretics for the same. No other acute complaints questions or concerns. Review of Systems 14 point ROS is neg except as stated in HPI Past Medical History Past Medical History: Heart Failure, COPD, Hyperlipidemia, Hypertension, Renal Disease Additional Past Medical History / Comment(s): liver disease History of Any Multi-Drug Resistant Organisms: None Reported Past Surgical History: Back Surgery, Orthopedic Surgery Additional Past Surgical History / Comment(s): facial reconstructions Past Psychological History: No Psychological Hx Reported Smoking Status: Former smoker - Past Family History Brother(s) Family Medical History: Cancer (thinks lung cancer, dies within 2 mo of diagnosis) Medications and Allergies Home Medications Medication Instructions Recorded Confirmed Type Docusate [Colace] 100 mg PO TID 07/02/23 07/02/23 History Ferrous Sulfate [Feosol] 325 mg PO DAILY 07/02/23 07/02/23 History Fluticasone/Umeclidin/[place]an[place] 1 puff INHALATION RT-DAILY 07/02/23 07/03/23 History [Trelegy Ellipta 100-62.5-25] Gabapentin [Neurontin] 300 mg PO BID 07/02/23 07/02/23 History HYDROcodone/APAP 10-325MG [[place] 1 tab PO QID PRN 07/02/23 07/02/23 History 10-325] LORazepam [Ativan] 0.5 mg PO DAILY PRN 07/02/23 07/02/23 History Losartan Potassium 50 mg PO DAILY 07/02/23 07/03/23 History Multivit-Min/FA/Lycopen/Lutein 1 tab PO DAILY 07/02/23 07/02/23 History [Centrum Silver Tablet] Omeprazole 40 mg PO DAILY PRN 07/02/23 07/02/23 History Pantoprazole [Protonix] 40 mg PO DAILY 07/02/23 07/03/23 History Potassium Chloride ER [K-Dur 10] 60 meq PO W/BRKFST 07/02/23 07/03/23 History Sodium Chloride Tab 1 gm PO DAILY 07/02/23 07/02/23 History Torsemide [Soaanz] 40 mg PO DAILY 07/02/23 07/03/23 History allopurinoL [Zyloprim] 100 mg PO DAILY 07/02/23 07/03/23 History hydrOXYzine HCL [Atarax] 50 mg PO TID 07/02/23 07/03/23 History metOLazone [Zaroxolyn] 2.5 mg PO BID 07/02/23 07/03/23 History methocarbamoL 500 mg PO TID PRN 07/02/23 07/03/23 History Allergies Allergy/AdvReac Type Severity Reaction Status Date / Time cefuroxime [From Ceftin] Allergy Rash/Hives Verified 07/02/23 22:34 ofloxacin [From Floxin] Allergy Rash/Hives Verified 07/02/23 22:34 amoxicillin [From Augmentin] AdvReac Diarrhea Verified 07/02/23 22:34 clavulanic acid AdvReac Diarrhea Verified 07/02/23 22:34 [From Augmentin] Physical Exam Vitals: Vital Signs Temp Pulse Resp BP Pulse Ox 07/03/23 08:22 84 18 172/82 98 07/03/23 07:56 96 07/03/23 05:45 79 16 140/61 98 07/03/23 04:38 75 16 149/69 97 07/03/23 01:19 78 26 H 134/72 94 L 07/02/23 23:11 77 18 144/68 95 07/02/23 20:18 82 18 112/58 98 07/02/23 18:36 98.3 F 87 20 103/63 99 Intake and Output 07/02/23 07/03/23 07/03/23 22:59 06:59 14:59 Other: Weight 86.183 kg - Constitutional General appearance: average body habitus, cooperative, no acute distress - EENT Eyes: anicteric sclerae, EOMI ENT: hearing grossly normal, normal oropharynx - Neck Neck: no lymphadenopathy - Respiratory Respiratory: bilateral: diminished (thoughout) - Cardiovascular Rhythm: regular Heart sounds: normal: S1, S2 Abnormal Heart Sounds: no systolic murmur, no diastolic murmur, no rub, no S3 Gallop, no S4 Gallop, no click, no other leg Peripheral Edema: bilateral: None - Gastrointestinal General gastrointestinal: no absent bowel sounds, no decreased bowel sounds, no distended, no hepatomegaly, no hyperactive bowel sounds, normal bowel sounds, no organomegaly, no rigid, no scaphoid, soft, no splenomegaly, no tenderness, no u mbilical hernia, no ventral hernia - Integumentary Integumentary: normal - Neurologic Neurologic: CNII-XII intact (grossly) - Musculoskeletal Musculoskeletal: strength equal bilaterally - Psychiatric Psychiatric: A&O x's 3, appropriate affect, intact judgment & insight Results CBC & Chem 7: 07/03/23 06:51 07/03/23 06:57 Labs: Abnormal Lab Results - Last 24 Hours (Table) 07/02/23 07/02/23 07/02/23 Range/Units 18:53 18:53 18:53 WBC 30.1 H (3.8-10.6) k/uL RBC 3.01 L (3.80-5.40) m/uL Hgb 9.6 L (11.4-16.0) gm/dL Hct 29.1 L (34.0-46.0) % Neutrophils # (1.3-7.7) k/uL Neutrophils # (Manual) 28.60 H (1.3-7.7) k/uL Lymphocytes # (1.0-4.8) k/uL Lymphocytes # (Manual) 0.60 L (1.0-4.8) k/uL Sodium 129 L (137-145) mmol/L Potassium 3.2 L (3.5-5.1) mmol/L Chloride 90 L (98-107) mmol/L BUN 126 H* (7-17) mg/dL Creatinine 2.35 H (0.52-1.04) mg/dL Glucose 126 H (74-99) mg/dL Magnesium 1.4 L (1.6-2.3) mg/dL Troponin I 0.066 H* (0.000-0.034) ng/mL Total Protein (6.3-8.2) g/dL Albumin (3.5-5.0) g/dL Ur Leukocyte Esterase (Negative) Urine WBC (0-5) /hpf Urine Bacteria (None) /hpf 07/02/23 07/03/23 07/03/23 Range/Units 21:06 06:51 06:57 WBC 17.3 H (3.8-10.6) k/uL RBC 2.79 L (3.80-5.40) m/uL Hgb 8.8 L (11.4-16.0) gm/dL Hct 27.2 L (34.0-46.0) % Neutrophils # 15.8 H (1.3-7.7) k/uL Neutrophils # (Manual) (1.3-7.7) k/uL Lymphocytes # 0.8 L (1.0-4.8) k/uL Lymphocytes # (Manual) (1.0-4.8) k/uL Sodium 132 L (137-145) mmol/L Potassium 2.6 L* (3.5-5.1) mmol/L Chloride 95 L (98-107) mmol/L BUN 113 H* (7-17) mg/dL Creatinine 2.29 H (0.52-1.04) mg/dL Glucose 144 H (74-99) mg/dL Magnesium 1.3 L (1.6-2.3) mg/dL Troponin I (0.000-0.034) ng/mL Total Protein 5.9 L (6.3-8.2) g/dL Albumin 3.2 L (3.5-5.0) g/dL Ur Leukocyte Esterase Small H (Negative) Urine WBC 6 H (0-5) /hpf Urine Bacteria Rare H (None) /hpf Comments: renal US report reviewed CT scan - abdomen: report reviewed CT scan - pelvis: report reviewed Assessment and Plan (1) Leukocytosis Current Visit: Yes Status: Acute Priority: Medium Code(s): D72.829 - ELEVATED WHITE BLOOD CELL COUNT, UNSPECIFIED SNOMED Code(s): 009609326 (2) Acute renal failure Current Visit: Yes Status: Acute Priority: High Code(s): N17.9 - ACUTE KIDNEY FAILURE, UNSPECIFIED SNOMED Code(s): 09776120 (3) Hyponatremia Current Visit: Yes Status: Acute Priority: High Code(s): E87.1 - HYPO- OSMOLALITY AND HYPONATREMIA SNOMED Code(s): 21803334 (4) Anemia Current Visit: Yes Status: Acute Priority: Medium Code(s): D64.9 - ANEMIA, UNSPECIFIED SNOMED Code(s): 960435625 Plan: Acute renal failure -Nephrology consulted -Patient is receiving hydration -Renal ultrasound reporting no hydronephrosis Leukocytosis -Mostly neutrophilia, improved since admit -No additional labs at this time. Will monitor counts. Additional testing as needed Anemia -Normocytic normochromic -Patient reports trying to take oral iron but cannot tolerate side effects -Iron studies will be ordered CTAP without contrast showing bilateral inguinal adenopathy -Largest 6.3 x 2.9 cm. Subpleural soft tissue thickening at the posterior medi al left lung base, probably pleural parenchymal scarring. -Reviewed with patient concerning findings. Absolutely recommend further workup. Would like a CT of the chest based on patient's smoking history and hyponatremia, do prefer with contrast. Will see how patient's renal function changes with treatment and order then. Once we have more information can determine who best to ask for biopsy. Pt understands concerns and plan and is agreeable to cont work up
[2023-07-03 16:32] LABS: African American GFR (CKD) 27 (>60 ml/min/1.73 sqM); Anion Gap 8 mmol/L; Blood Urea Nitrogen 96 mg/dL (7-17); Calcium 8.6 mg/dL (8.4-10.2); Carbon Dioxide 28 mmol/L (22-30); Chloride 96 mmol/L (98-107); Glucose 127 mg/dL (74-99); Magnesium 2.1 mg/dL (1.6-2.3); Non-African American GFR(CKD) 23 (>60 ml/min/1.73 sqM); Potassium 3.3 mmol/L (3.5-5.1); Sodium 132 mmol/L (137-145)
[2023-07-03 16:37] LABS: Reticulocyte % 1.6 % (0.5-2.0)
[2023-07-03] MEDS: POTASSIUM CHLORIDE ER 20 MEQ TAB.ER PO STA (17:48)
[2023-07-03] MEDS: hydrOXYzine HCL 25 MG TAB PO SCH (17:54)
--- NOTE | 2023-07-03 20:02 | P.HPIM ---
History of Present Illness H&P Date: 07/03/23 Chief Complaint: Abnormal labs This is a pleasant 67-year-old patient who follows with Dr. Champion.. Chronic stable medical conditions include CHF, COPD, hypertension, hyperlipidemia, osteoarthritis, constipation. 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 Patient is been feeling weak and tired. Appetite is fair. No fever no chills. Patient has wounds on both the lower extremity. Present for more than 2 years. Wound care is being carried out. Patient is accompanied by his son in the ER. Review of systems: GEN.: Tired EYES: None HEENT: None NECK: None RESPIRATORY: None CARDIOVASCULAR: None GASTROINTESTINAL: None GENITOURINARY: No MUSCULOSKELETAL: Lower extremity wounds LYMPHATICS: None HEMATOLOGICAL: None PSYCHIATRY: None NEUROLOGICAL: None Social history: Patient's son lives with her. Smokes a pack a day for about 45 years stopped about 2 years ago. Does use a cane. Physical examination: VITAL SIGNS: 98.3, 87, 20, 103/63, 99% on 2 L of Garcia presentation GENERAL: BMI 35.9, reclining bed awake a bit tired. EYES: Pupils equal. Conjunctiva tutu l. HEENT: External appearance of nose and ears normal, oral cavity grossly normal. NECK: JVD not raised; masses not palpable. HEART: First and second heart sounds are normal; no edema. LUNGS: Respiratory rate normal; decreased breath sounds. ABDOMEN: Soft, nontender, liver spleen not palpable, no masses palpable. PSYCH: Alert and oriented x3; mood and affect tutu l. MUSCULOSKELETAL:No Clubbing/cyanosis;muscles-grossly intact. OA DERMATOLOGICAL: Bilateral lower extremity wounds. Covered with dressing NEUROLOGICAL: Cranial nerves grossly intact; no facial asymmetry, power and sensation grossly intact. LYMPHATICS: No lymph nodes palpable in the axilla and neck INVESTIGATIONS, reviewed in the clinical context: July 03: White count 7.3 hemoglobin 8.8 platelets 269 sodium 132 potassium 2.6 BUN 113 creatinine 2.29 Troponin I 0.066 July 02: White count 13.1, hemoglobin 9.6 platelets 315 sodium 129 potassium 3.2 BUN 126 creatinine 2.35 Chest x-ray film personally reviewed by me-some cardiomegaly Abdomen pelvis CT: Bilateral inguinal adenopathy gallstones. Assessment and plan: -Acute on chronic kidney disease. Hold off any renal of NSAID medications. Hold losartan and Zaroxolyn. And torsemide. -Peripheral neuropathy Neurontin -GERD Omeprazole -Chronic congestive heart failure EF not known 2D echo -COPD no prior smoker Albuterol as needed -Hyperlipidemia -Essential hypertension -Obesity BMI 35.9 Weight loss measures Care was discussed with the patient's son at the bedside. Nephrology. C ardiology. Wound care is consulted. - Past Medical History Past Medical History: Heart Failure, COPD, Hyperlipidemia, Hypertension, Renal Disease Additional Past Medical History / Comment(s): liver disease Past Surgical History: Back Surgery, Orthopedic Surgery Additional Past Surgical History / Comment(s): facial reconstructions Smoking Status: Former smoker - Past Family History Brother(s) Family Medical History: Cancer (thinks lung cancer, dies within 2 mo of diagnosis) Medications and Allergies Home Medications Medication Instructions Recorded Confirmed Type Docusate [Colace] 100 mg PO TID 07/02/23 07/02/23 History Ferrous Sulfate [Feosol] 325 mg PO DAILY 07/02/23 07/02/23 History Fluticasone/Umeclidin/Vilanter 1 puff INHALATION RT-DAILY 07/02/23 07/03/23 History [Trelegy Ellipta 100-62.5-25] Gabapentin [Neurontin] 300 mg PO BID 07/02/23 07/02/23 History HYDROcodone/APAP 10-325MG [[place] 1 tab PO QID PRN 07/02/23 07/02/23 History 10-325] LORazepam [Ativan] 0.5 mg PO DAILY PRN 07/02/23 07/02/23 History Losartan Potassium 50 mg PO DAILY 07/02/23 07/03/23 History Multivit-Min/FA/Lycopen/Lutein 1 tab PO DAILY 07/02/23 07/02/23 History [Centrum Silver Tablet] Omeprazole 40 mg PO DAILY PRN 07/02/23 07/02/23 History Pantoprazole [Protonix] 40 mg PO DAILY 07/02/23 07/03/23 History Potassium Chloride ER [K-Dur 10] 60 meq PO W/BRKFST 07/02/23 07/03/23 History Sodium Chloride Tab 1 gm PO DAILY 07/02/23 07/02/23 History Torsemide [Soaanz] 40 mg PO DAILY 07/02/23 07/03/23 History allopurinoL [Zyloprim] 100 mg PO DAILY 07/02/23 07/03/23 History hydrOXYzine HCL [Atarax] 50 mg PO TID 07/02/23 07/03/23 History metOLazone [Zaroxolyn] 2.5 mg PO BID 07/02/23 07/03/23 History methocarbamoL 500 mg PO TID PRN 07/02/23 07/03/23 History Allergies Allergy/AdvReac Type Severity Reaction Status Date / Time cefuroxime [From Ceftin] Allergy Rash/Hives Verified 07/02/23 22:34 ofloxacin [From Floxin] Allergy Rash/Hives Verified 07/02/23 22:34 amoxicillin [From Augmentin] AdvReac Diarrhea Verified 07/02/23 22:34 clavulanic acid AdvReac Diarrhea Verified 07/02/23 22:34 [From Augmentin] Physical Exam Vitals: Vital Signs Temp Pulse Resp BP Pulse Ox 07/03/23 08:22 84 18 172/82 98 07/03/23 07:56 96 07/03/23 05:45 79 16 140/61 98 07/03/23 04:38 75 16 149/69 97 07/03/23 01:19 78 26 H 134/72 94 L 07/02/23 23:11 77 18 144/68 95 07/02/23 20:18 82 18 112/58 98 07/02/23 18:36 98.3 F 87 20 103/63 99 Intake and Output 07/02/23 07/03/23 07/03/23 22:59 06:59 14:59 Other: Weight 86.183 kg Results CBC & Chem 7: 07/03/23 06:51 07/03/23 15:40 Labs: Abnormal Lab Results - Last 24 Hours (Table) 07/02/23 07/02/23 07/02/23 Range/Units 18:53 18:53 18:53 WBC 30.1 H (3.8-10.6) k/uL RBC 3.01 L (3.80-5.40) m/uL Hgb 9.6 L (11.4-16.0) gm/dL Hct 29.1 L (34.0-46.0) % Neutrophils # (1.3-7.7) k/uL Neutrophils # (Manual) 28.60 H (1.3-7.7) k/uL Lymphocytes # (1.0-4.8) k/uL Lymphocytes # (Manual) 0.60 L (1.0-4.8) k/uL Sodium 129 L (137-145) mmol/L Potassium 3.2 L (3.5-5.1) mmol/L Chloride 90 L (98-107) mmol/L BUN 126 H* (7-17) mg/dL Creatinine 2.35 H (0.52-1.04) mg/dL Glucose 126 H (74-99) mg/dL Magnesium 1.4 L (1.6-2.3) mg/dL Troponin I 0.066 H* (0.000-0.034) ng/mL Total Protein (6.3-8.2) g/dL Albumin (3.5-5.0) g/dL Ur Leukocyte Esterase (Negative) Urine WBC (0-5) /hpf Urine Bacteria (None) /hpf 07/02/23 07/03/23 07/03/23 Range/Units 21:06 06:51 06:57 WBC 17.3 H (3.8-10.6) k/uL RBC 2.79 L (3.80-5.40) m/uL Hgb 8.8 L (11.4-16.0) gm/dL Hct 27.2 L (34.0-46.0) % Neutrophils # 15.8 H (1.3-7.7) k/uL Neutrophils # (Manual) (1.3-7.7) k/uL Lymphocytes # 0.8 L (1.0-4.8) k/uL Lymphocytes # (Manual) (1.0-4.8) k/uL Sodium 132 L (137-145) mmol/L Potassium 2.6 L* (3.5-5.1) mmol/L Chloride 95 L (98-107) mmol/L BUN 113 H* (7-17) mg/dL Creatinine 2.29 H (0.52-1.04) mg/dL Glucose 144 H (74-99) mg/dL Magnesium 1.3 L (1.6-2.3) mg/dL Troponin I (0.000-0.034) ng/mL Total Protein 5.9 L (6.3-8.2) g/dL Albumin 3.2 L (3.5-5.0) g/dL Ur Leukocyte Esterase Small H (Negative) Urine WBC 6 H (0-5) /hpf Urine Bacteria Rare H (None) /hpf
[2023-07-03] MEDS: GABAPENTIN 300 MG CAP PO SCH (21:54)
[2023-07-04 05:25] LABS: % Iron Saturation 4.76 (12.00-45.00); Iron 12 UG/DL (50-170); Total Iron Binding Capacity 252 UG/DL (228-460)
[2023-07-04 10:06] LABS: ALT 12 U/L (4-34); AST 19 U/L (14-36); African American GFR (CKD) 34 (>60 ml/min/1.73 sqM); Albumin 3.3 g/dL (3.5-5.0); Alkaline Phosphatase 105 U/L (38-126); Anion Gap 5 mmol/L; Blood Urea Nitrogen 83 mg/dL (7-17); Calcium 9.1 mg/dL (8.4-10.2); Carbon Dioxide 27 mmol/L (22-30); Chloride 104 mmol/L (98-107); Glucose 130 mg/dL (74-99); Magnesium 1.7 mg/dL (1.6-2.3); Non-African American GFR(CKD) 29 (>60 ml/min/1.73 sqM); Potassium 3.9 mmol/L (3.5-5.1); Sodium 136 mmol/L (137-145); Total Bilirubin 0.2 mg/dL (0.2-1.3); Total Protein 6.1 g/dL (6.3-8.2)
--- NOTE | 2023-07-04 10:25 | P.CONS ---
History of Present Illness - Reason for Consult Consult date: 07/04/23 wound care - History of Present Illness This is a 67-year-old patient being seen by the wound care center for nonhealing ulcerations to bilateral lower extremities. Patient has previously been seen in the wound care center in [place]. She had underwent treatment for venous insufficiency. Patient was instructed that she needed to wear compression garments at all times which she did not do. Patient developed edema and d rainage to the bilateral lower extremity resulting in excoriation and multiple small ulcerations on bilateral lower extremities. Patient's past medical history is significant for congestive heart failure, venous insufficiency, COPD, hyperlipidemia, hypertension, renal disease. Review Of Systems: Constitutional: No fever, no chills, no night sweats. No weight change. No weakness, fatigue or lethargy. No daytime sleepiness. Integumentary:reports wounds, no lesions. No rash or pruritus. No unusual bruising. No change in hair or nails. Physical exam: General Appearance: Alert, cooperative, no distress, appears stated age. Skin: See HPI all other Skin color, texture, tugor normal, no rashes or lesions. Neurologic: Alert oriented x3 Assessment: 1. Chronic venous hypertension with inflammation and ulceration bilateral lower extremities 2. Multiple sites nonhealing ulceration limited to skin breakdown Plan: 1.Apply Triad wrap with rolled gauze and Steve wrap for compression. Thank you for the consultation any questions please contact the wound care center DNP note has been reviewed and discussed with Dr. Hoyt and the impression and plan of care has been directed as dictated. Past Medical History Past Medical History: Heart Failure, COPD, Hyperlipidemia, Hypertension, Renal Disease Additional Past Medical History / Comment(s): liver disease History of Any Multi-Drug Resistant Organisms: None Reported Past Surgical History: Back Surgery, Orthopedic Surgery Additional Past Surgical History / Comment(s): facial reconstructions Past Psychological History: No Psychological Hx Reported Smoking Status: Former smoker - Past Family History Brother(s) Family Medical History: Cancer Medications and Allergies Home Medications Medication Instructions Recorded Confirmed Type Docusate [Colace] 100 mg PO TID 07/02/23 07/02/23 History Ferrous Sulfate [Feosol] 325 mg PO DAILY 07/02/23 07/02/23 History Fluticasone/Umeclidin/Vilanter 1 puff INHALATION RT-DAILY 07/02/23 07/03/23 History [Trelegy Ellipta 100-62.5-25] Gabapentin [Neurontin] 300 mg PO BID 07/02/23 07/02/23 History HYDROcodone/APAP 10-325MG [[place] 1 tab PO QID PRN 07/02/23 07/02/23 History 10-325] LORazepam [Ativan] 0.5 mg PO DAILY PRN 07/02/23 07/02/23 History Losartan Potassium 50 mg PO DAILY 07/02/23 07/03/23 History Multivit-Min/FA/Lycopen/Lutein 1 tab PO DAILY 07/02/23 07/02/23 History [Centrum Silver Tablet] Omeprazole 40 mg PO DAILY PRN 07/02/23 07/02/23 History Pantoprazole [Protonix] 40 mg PO DAILY 07/02/23 07/03/23 History Potassium Chloride ER [K-Dur 10] 60 meq PO W/BRKFST 07/02/23 07/03/23 History Sodium Chloride Tab 1 gm PO DAILY 07/02/23 07/02/23 History Torsemide [Soaanz] 40 mg PO DAILY 07/02/23 07/03/23 History allopurinoL [Zyloprim] 100 mg PO DAILY 07/02/23 07/03/23 History hydrOXYzine HCL [Atarax] 50 mg PO TID 07/02/23 07/03/23 History metOLazone [Zaroxolyn] 2.5 mg PO BID 07/02/23 07/03/23 History methocarbamoL 500 mg PO TID PRN 07/02/23 07/03/23 History Allergies Allergy/AdvReac Type Severity Reaction Status Date / Time cefuroxime [From Ceftin] Allergy Rash/Hives Verified 07/02/23 22:34 ofloxacin [From Floxin] Allergy Rash/Hives Verified 07/02/23 22:34 amoxicillin [From Augmentin] AdvReac Diarrhea Verified 07/02/23 22:34 clavulanic acid AdvReac Diarrhea Verified 07/02/23 22:34 [From Augmentin] Physical Exam Vitals: Vital Signs Temp Pulse Pulse Resp BP BP Pulse Ox 07/04/23 08:35 77 20 07/04/23 08:00 97.5 F L 77 20 151/93 100 07/04/23 04:00 98.0 F 78 18 137/66 97 07/04/23 00:00 97.8 F 86 18 124/67 96 07/03/23 22:04 98.0 F 93 18 138/62 98 07/03/23 20:51 98.7 F 90 18 149/59 97 07/03/23 18:02 84 16 152/57 99 Intake and Output 07/03/23 07/04/23 07/04/23 22:59 06:59 14:59 Intake Total 240 240 Balance 240 240 Intake: Oral 240 240 Other: Voiding Method Toilet Toilet # Voids 2 Weight 86.183 kg Results CBC & Chem 7: 07/03/23 06:51 07/04/23 09:06 Labs: Abnormal Lab Results - Last 24 Hours (Table) 07/03/23 07/03/23 07/04/23 Range/Units 15:35 15:40 09:06 Sodium 132 L 136 L (137-145) mmol/L Potassium 3.3 L (3.5-5.1) mmol/L Chloride 96 L (98-107) mmol/L BUN 96 H 83 H (7-17) mg/dL Creatinine 2.16 H 1.79 H (0.52-1.04) mg/dL Glucose 127 H 130 H (74-99) mg/dL Iron 12 L (50-170) UG/DL % Saturation 4.76 L (12.00-45.00) Transferrin 180.0 L (204.0-354.0) mg/dL Total Protein 6.1 L (6.3-8.2) g/dL Albumin 3.3 L (3.5-5.0) g/dL Folate 40.00 H (4.40-31.00) ng/mL Microbiology - Last 24 Hours (Table) 07/02/23 22:33 Blood Culture - Preliminary Blood 07/02/23 22:18 Blood Culture - Preliminary Blood Assessment and Plan (1) Chronic venous hypertension (idiopathic) with ulcer and inflammation of bilateral lower extremity Current Visit: Yes Status: Acute Code(s): I87.333 - CHRONIC VENOUS HTN W ULCER AND INFLAM OF BILATERAL LOW EXTRM SNOMED Code(s): 517933519999857 (2) Non-healing ulcer of multiple sites of lower extremity, limited to breakdown of skin Current Visit: Yes Status: Acute Code(s): L97.901 - NON-PRS CHR ULC UNSP PRT OF UNSP LOW LEG LMT TO BRKDWN SKIN SNOMED Code(s): 78685560
[2023-07-04] MEDS: HYDROPHILIC CREAM 180 GM TUBE TOPICAL SCH (10:27)
--- NOTE | 2023-07-04 10:36 | P.PN ---
Subjective Patient is seen in follow-up for acute kidney injury on chronic kidney disease. Renal function improving with IV fluids. Oral intake good. Admits to good urine output. No vomiting or diarrhea. Vital signs are stable. General: No acute distress. HEENT: Head exam is unremarkable. LUNGS: No audible rhonchi or wheezes. HEART: Rate and Rhythm are regular. ABDOMEN: Nontender. EXTREMITITES: Trace edema. Lower extremity wounds noted. Objective - Vital Signs Vital signs: Vital Signs Temp 97.5 F L 07/04/23 08:00 Pulse 77 07/04/23 08:35 Resp 20 07/04/23 08:35 BP 151/93 07/04/23 08:00 Pulse Ox 100 07/04/23 08:00 FiO2 Intake & Output 07/03/23 07/04/23 07/04/23 18:59 06:59 18:59 Intake Total 240 240 Balance 240 240 Weight 86.183 kg Intake: Oral 240 240 Other: Voiding Method Toilet Toilet # Voids 2 - Labs CBC & Chem 7: 07/03/23 06:51 07/04/23 09:06 Labs: Abnormal Lab Results - Last 24 Hours (Table) 07/03/23 07/03/23 07/04/23 Range/Units 15:35 15:40 09:06 Sodium 132 L 136 L (137-145) mmol/L Potassium 3.3 L (3.5-5.1) mmol/L Chloride 96 L (98-107) mmol/L BUN 96 H 83 H (7-17) mg/dL Creatinine 2.16 H 1.79 H (0.52-1.04) mg/dL Glucose 127 H 130 H (74-99) mg/dL Iron 12 L (50-170) UG/DL % Saturation 4.76 L (12.00-45.00) Transferrin 180.0 L (204.0-354.0) mg/dL Total Protein 6.1 L (6.3-8.2) g/dL Albumin 3.3 L (3.5-5.0) g/dL Folate 40.00 H (4.40-31.00) ng/mL Microbiology - Last 24 Hours (Table) 07/02/23 22:33 Blood Culture - Preliminary Blood 07/02/23 22:18 Blood Culture - Preliminary Blood Assessment and Plan Plan: Assessment: 1. Acute kidney injury secondary to ATN secondary to diuresis/hypovolemia. Creatinine 2.35 on admission and is 1.79 today. UA benign. No hydronephrosis noted on imaging. 2. Chronic kidney disease stage IIIa with baseline creatinine 1.4 in August 2022. Etiology is nephrosclerosis. 3. Hypokalemia from diuresis and hypomagnesemia. Replaced. Better. 4. Hypomagnesemia from diuresis. Replaced. Improved. 5. Hypovolemic hyponatremia improving with IV hydration. Better. 6. Chronic diastolic CHF. 7. Hypertension with chronic kidney disease. 8. Anemia. Rule out iron deficiency. Plan: Maintain IV fluids. Decrease rate to 50 cc an hour. Continue to hold diuretics. Replace potassium and add oral magnesium oxide. Avoid nephrotoxins. Continue to monitor renal function and urine output. Follow-up echocardiogram. Hold amlodipine for systolic blood pressure less than 120. Check iron studies.
--- NOTE | 2023-07-04 11:21 | CA ---
Transthoracic Echo Report Name: Ebony Poon Age: 67 Gender: F : 1955 Exam Date: 07/04/2023 09:17 Exam Location: [facility] Ht (in): 51 Wt (lb): 190 Ordering Physician: Esme Pope Attending/Referring Phys: [id number], Niko [employer] Drawing [employer] Maker Luan Cameron RDCS Procedure CPT: Indications: LVF Cardiac Hx: Technical Quality: Fair Contrast 1: Total Dose (mL): Contrast 2: Total Dose (mL): MEASUREMENTS (Male / Female) Normal Values 2D ECHO LV Diastolic Diameter PLAX 5.1 cm 4.2 - 5.9 / 3.9 - 5.3 cm LV Systolic Diameter PLAX 3.9 cm IVS Diastolic Thickness 1.1 cm 0.6 - 1.0 / 0.6 - 0.9 cm LVPW Diastolic Thickness 0.7 cm 0.6 - 1.0 / 0.6 - 0.9 cm LV Relative Wall Thickness 0.4 Aortic Root Diameter 3.3 cm LA Systolic Diameter LX 5.3 cm 3.0 - 4.0 / 2.7 - 3.8 cm DOPPLER AV Peak Velocity 151.0 cm/s AV Peak Gradient 9.1 mmHg AV Mean Velocity 111.1 cm/s AV Mean Gradient 5.4 mmHg AV Velocity Time Integral 36.8 cm LVOT Peak Velocity 52.2 cm/s LVOT Peak Gradient 1.1 mmHg LVOT Velocity Time Integral 13.7 cm Mitral E Point Velocity 116.6 cm/s Mitral A Point Velocity 109.6 cm/s Mitral E to A Ratio 1.1 MV Deceleration Time 212.4 ms MV E' Velocity 8.2 cm/s Mitral E to MV E' Ratio 14.2 TR Peak Velocity 248.2 cm/s TR Peak Gradient 24.6 mmHg PV Peak Velocity 79.8 cm/s PV Peak Gradient 2.5 mmHg FINDINGS Left Ventricle Mildly increased septal wall thickness. Left ventricular ejection fraction is estimated at 55-60%. Right Ventricle Right ventricle not well visualized. Right Atrium Right atrium not well visualized. Left Atrium Mildly increased left atrial diameter. Mitral Valve Trace mitral regurgitation. Aortic Valve Aortic valve not well visualized. Tricuspid Valve Mild tricuspid regurgitation. Pulmonic Valve Pulmonic valve not well visualized. Pericardium Normal pericardium. Aorta Aortic root and proximal ascending aorta not well visualized. CONCLUSIONS Mild increased left ventricular wall thickness Left ventricular ejection fraction 55-60% Mildly dilated left atrium Trace mitral regurgitation Mild tricuspid regurgitation Previewed by: Dr. Jhonathan Quintero DO (Electronically Signed) Final Date: 04 July 2023 11:20
[2023-07-04] MEDS: POTASSIUM CHLORIDE ER 20 MEQ TAB.ER PO STA (12:46)
[2023-07-04] MEDS: MAGNESIUM OXIDE 400 MG TAB PO SCH (12:46)
--- NOTE | 2023-07-04 13:34 | P.PN ---
Subjective Progress Note Date: 07/04/23 Reason for Consult (text): known patient History of present illness: History of present illness: This is a 67-year-old female patient of Dr. Laurita Mark with past medical history of COPD, chronic hypoxic respiratory failure on home O2, chronic diastolic heart failure, hypertension. Patient was recently seen in the office on June 11 at which time she had weight gain and she was advised to resume metolazone and continue Demadex and lab work was obtained which was abnormal and when this was reported back, patient was contacted, to the hospital for further evaluation and treatment. Patient states that she is feeling well but has been extremely weak and may be some confusion per the family. Patient has been started on IV fluids at 130 cc/h. She is seen today in the emergency center waiting for bed to cardiac stepdown unit. Nephrology is also on consult. Chest x-ray: Increased interstitial markings may be in part related to vascular crowding from hypoventilatory changes. CT of the abdomen pelvis without contrast revealed bilateral inguinal adenopathy. Cholelithiasis. Soft tissue thickening of the posterior medial left lung base probably pleural-parenchymal scarring. Renal ultrasound was limited detailed proximal assessment of the kidneys. No obvious hydronephrosis. Initial WBC 30.1 and now 17.3, hemoglobin 8.8, platelet count 269. Initial sodium 129 now 132, potassium is 2.6, chloride 95, BUN initially 126 now 113 and creatinine initially 2.35 followed by 2.29. Blood sugar 144. Lactic acid was 0.8. Magnesium 1.4 and 1.3. Troponin 0.066. Liver function tests essentially normal. Home cardiac medications: Losartan 50 mg daily, metolazone 2.5 mg twice daily, torsemide 40 mg daily, sodium chloride tabs 1 g daily, potassium chloride 60 mEq daily. 07/04 Patient is seen today in follow-up on the cardiac stepdown unit. She states she had a very rough night. She accidentally pulled out her IV during the night. She states she has not had any sleep. No complaints of chest pain. Repeat blood work reveals sodium 136, potassium 3.9, BUN 83 creatinine 1.79. Patient is off IV fluids. Potassium and magnesium have been replaced. Blood pressure 125/67, heart rate in the 70s, pulse ox 99% on 2 L nasal cannula. Echocardiogram reveals EF 55 to 60%, mild increased left ventricular wall thickness. Trace mitral regurgitation, mild tricuspid regurgitation. Physical examination: Gen: This is a 67-year-old female appears to be in no acute distress. VS: reviewed blood pressure 172/82, heart rate 84, pulse ox 96% on 2 L nasal cannula. HEENT: Head is atraumatic, normocephalic. Pupils equal, round. Sclerae is anicteric. NECK: Supple. No JVD. LUNGS: Clear to auscultation. No wheezes or rhonchi. No intercostal retract ions. HEART: Regular rate and rhythm. No murmur. ABDOMEN: Soft No tenderness. EXTREMITIES: No pedal edema. No calf tenderness. NEUROLOGICAL: Patient is awake, alert and oriented x3. Assessment: Electrolyte abnormalities with hyponatremia, hypokalemia, hypomagnesemia Acute kidney injury Leukocytosis of unclear etiology Chronic diastolic heart failure Hypertension COPD Chronic hypoxic respiratory failure on home O2 Plan: Continue patient's home cardiac medications Further recommendations to follow based upon clinical course Anticipate discharge home tomorrow. Nurse practitioner note has been reviewed, I agree with documented findings and plan of care. Patient was seen and examined. Objective - Vital Signs Vital signs: Vital Signs Temp 97.5 F L 07/04/23 08:00 Pulse 77 07/04/23 08:35 Resp 20 07/04/23 08:35 BP 151/93 07/04/23 08:00 Pulse Ox 100 07/04/23 08:00 FiO2 Intake & Output 07/03/23 07/04/23 07/04/23 18:59 06:59 18:59 Intake Total 240 240 Balance 240 240 Weight 86.183 kg Intake: Oral 240 240 Other: Voiding Method Toilet Toilet # Voids 2 - Labs CBC & Chem 7: 07/03/23 06:51 07/04/23 09:06 Labs: Abnormal Lab Results - Last 24 Hours (Table) 07/03/23 07/03/23 07/04/23 Range/Units 15:35 15:40 09:06 Sodium 132 L 136 L (137-145) mmol/L Potassium 3.3 L (3.5-5.1) mmol/L Chloride 96 L (98-107) mmol/L BUN 96 H 83 H (7-17) mg/dL Creatinine 2.16 H 1.79 H (0.52-1.04) mg/dL Glucose 127 H 130 H (74-99) mg/dL Iron 12 L (50-170) UG/DL % Saturation 4.76 L (12.00-45.00) Transferrin 180.0 L (204.0-354.0) mg/dL Total Protein 6.1 L (6.3-8.2) g/dL Albumin 3.3 L (3.5-5.0) g/dL Folate 40.00 H (4.40-31.00) ng/mL Microbiology - Last 24 Hours (Table) 07/02/23 22:33 Blood Culture - Preliminary Blood 07/02/23 22:18 Blood Culture - Preliminary Blood
--- NOTE | 2023-07-04 18:24 | P.PN ---
Progress Note - Text Progress Note Date: 07/04/23 Chief Complaint: Abnormal labs This is a pleasant 67-year-old patient who follows with Dr. Champion.. Chronic stable medical conditions include CHF, COPD, hypertension, hyperlipidemia, osteoarthritis, constipation. Patient sent in for by his professional nurse after patient renal function was found to be getting much worse. Patient is been feeling weak and tired. Appetite is fair. No fever no chills. Patient has wounds on both the lower extremity. Present for more than 2 years. Wound care is being carried out. Patient is accompanied by his son in the ER. July 04: Admitted with acute kidney injury. Gentle hydration. Renal offensive medications have been held. Creatinine down to 1.79. Laying in bed. Patient also being followed by wound care team. Active Medications Hydrocodone Bitart/Acetaminophen (Hydrocodone/Apap 10-325mg 1 Each Tab) 1 each PO QID PRN PRN Reason: Pain Last Admin: 07/04/23 15:10 Dose: 1 each Allopurinol (Allopurinol 100 Mg Tab) 100 mg PO DAILY [facility] Last Admin: 07/04/23 08:13 Dose: 100 mg Amlodipine Besylate (Amlodipine 5 Mg Tab) 5 mg PO DAILY [facility] Last Admin: 07/04/23 08:12 Dose: 5 mg Budesonide/Formoterol Fumarate (Symbicort 80-4.5 Mcg Inhaler) 2 puff INHALATION RT-BID [facility] Last Admin: 07/04/23 09:43 Dose: Not Given Docusate Sodium (Docusate 100 Mg Cap) 100 mg PO TID [facility] Last Admin: 07/04/23 15:10 Dose: 100 mg Ferrous Sulfate (Ferrous Sulfate 325 Mg Tab) 325 mg PO DAILY [facility] Last Admin: 07/04/23 08:12 Dose: 325 mg Gabapentin (Gabapentin 300 Mg Cap) 300 mg PO HS [facility] Last Admin: 07/03/23 21:54 Dose: 300 mg Hydroxyzine HCl (Hydroxyzine Hcl 25 Mg Tab) 50 mg PO TID [facility] Last Admin: 07/04/23 16:39 Dose: 50 mg Lactated Ringer's (Lactated Ringers) 1,000 mls @ 50 mls/hr IV .Q20H [facility] Last Admin: 07/04/23 05:35 Dose: Not Given Magnesium Oxide (Magnesium Oxide 400 Mg Tab) 400 mg PO DAILY [facility] Last Admin: 07/04/23 12:46 Dose: 400 mg Morphine Sulfate (Morphine Sulfate 4 Mg/Ml Syringe) 4 mg IV Q4HR PRN PRN Reason: Severe Pain (Scale 7 to 10) Multi-Ingred Cream/Lotion/Oil/Oint (Hydrophilic Cream 180 Gm Tube) 1 applic TOPICAL DAILY [facility]; Protocol Last Admin: 07/04/23 10:27 Dose: 1 applic Multivitamins/Minerals (Vit A,C & X-Cptkuu-Krnepgju 1 Each Tab) 1 each PO DAILY [facility] Last Admin: 07/04/23 08:13 Dose: 1 each Naloxone HCl (Naloxone 0.4 Mg/Ml 1 Ml Vial) 0.2 mg IV Q2M PRN PRN Reason: Opioid Reversal Ondansetron HCl (Ondansetron 4 Mg/2 Ml Vial) 4 mg IVP Q8HR PRN PRN Reason: Nausea And Vomiting Pantoprazole Sodium (Pantoprazole 40 Mg Tablet) 40 mg PO DAILY [facility] Last Admin: 07/04/23 08:12 Dose: 40 mg Social history: Patient's son lives with her. Smokes a pack a day for about 45 years stopped about 2 years ago. Does use a cane. Physical examination: VITAL SIGNS: 97.6, 78, 18, 125 x 67, 99% on 2 L GENERAL: Laying in bed, awake EYES: Pupils equal. Conjunctiva tutu l. HEENT: External appearance of nose and ears normal, oral cavity grossly normal. NECK: JVD not raised; masses not palpable. HEART: First and second heart sounds are normal; no edema. LUNGS: Respiratory rate normal; decreased breath sounds. ABDOMEN: Soft, nontender, liver spleen not palpable, no masses palpable. PSYCH: Alert and oriented x3; mood and affect tutu l. MUSCULOSKELETAL:No Clubbing/cyanosis;muscles-grossly intact. OA DERMATOLOGICAL: Bilateral lower extremity wounds. Covered with dressing INVESTIGATIONS, reviewed in the clinical context: 2D echocardiogram: [July 04] left ventricular function 55 to 60%. July 04: Potassium 3.9 BUN 83 creatinine 1.79 Iron 12 TIBC 252% saturation 4.76 transferrin 180 Vitamin B12 651 folate 40 July 03: White count 7.3 hemoglobin 8.8 platelets 269 sodium 132 potassium 2.6 BUN 113 creatinine 2.29 Troponin I 0.066 July 02: White count 13.1, hemoglobin 9.6 platelets 315 sodium 129 potassium 3.2 BUN 126 creatinine 2.35 Chest x-ray film personally reviewed by me-some cardiomegaly Abdomen pelvis CT: Bilateral inguinal adenopathy gallstones. Assessment and plan: -Acute on chronic kidney disease. Likely ATN. Hold off any renal of NSAID medications. Hold losartan and Zaroxolyn. And torsemide. IV hydration -Peripheral neuropathy Neurontin -GERD Omeprazole -Chronic congestive heart failure EF diastolic dysfunction EF 55 to 60% -Multiple sites nonhealing ulceration limited to skin breakdown bilateral lower extremity. Being followed by wound care -COPD no prior smoker Albuterol as needed -Hyperlipidemia -Essential hypertension -Obesity BMI 35.9 Weight loss measures IV fluids. Other medications to continue. Past Medical History Past Medical History: Heart Failure, COPD, Hyperlipidemia, Hypertension, Renal Disease Additional Past Medical History / Comment(s): liver disease Past Surgical History: Back Surgery, Orthopedic Surgery Additional Past Surgical History / Comment(s): facial reconstructions Smoking Status: Former smoker
--- NOTE | 2023-07-04 18:44 | P.PN ---
Subjective Progress Note Date: 07/04/23 Principal diagnosis: Siva inguinal LAD In follow-up today patient reports feeling a little bit better than on admit, no fevers, nausea or vomiting, appetite is only fair, she denies chest pain or unusual cough, abdominal pain or cramping, she is still making urine. She reports that she has had bilateral lower extremity ulcerations for about 22 months. Objective - Vital Signs Vital signs: Vital Signs Temp 97.5 F L 07/04/23 08:00 Pulse 77 07/04/23 08:35 Resp 20 07/04/23 08:35 BP 151/93 07/04/23 08:00 Pulse Ox 100 07/04/23 08:00 FiO2 Intake & Output 07/03/23 07/04/23 07/04/23 18:59 06:59 18:59 Intake Total 240 240 Balance 240 240 Weight 86.183 kg Intake: Oral 240 240 Other: Voiding Method Toilet Toilet # Voids 2 - Constitutional General appearance: Present: average body habitus, cooperative, no acute distress - EENT Eyes: Present: anicteric sclerae, EOMI ENT: Present: hearing grossly normal - Respiratory Respiratory: bilateral: diminished - Cardiovascular Rhythm: regular Heart sounds: normal: S1, S2 - Peripheral edema leg Peripheral Edema: bilateral: 1+ (Bilateral lower extremities wrapped in Steve bandage) - Neurologic Neurologic: Present: CNII-XII intact - Musculoskeletal Musculoskeletal: Present: strength equal bilaterally - Psychiatric Psychiatric: Present: A&O x's 3, appropriate affect, intact judgment & insight - Labs CBC & Chem 7: 07/03/23 06:51 07/04/23 09:06 Labs: Abnormal Lab Results - Last 24 Hours (Table) 07/03/23 07/03/23 07/04/23 Range/Units 15:35 15:40 09:06 Sodium 132 L 136 L (137-145) mmol/L Potassium 3.3 L (3.5-5.1) mmol/L Chloride 96 L (98-107) mmol/L BUN 96 H 83 H (7-17) mg/dL Creatinine 2.16 H 1.79 H (0.52-1.04) mg/dL Glucose 127 H 130 H (74-99) mg/dL Iron 12 L (50-170) UG/DL % Saturation 4.76 L (12.00-45.00) Transferrin 180.0 L (204.0-354.0) mg/dL Total Protein 6.1 L (6.3-8.2) g/dL Albumin 3.3 L (3.5-5.0) g/dL Folate 40.00 H (4.40-31.00) ng/mL Microbiology - Last 24 Hours (Table) 07/02/23 22:33 Blood Culture - Preliminary Blood 07/02/23 22:18 Blood Culture - Preliminary Blood Assessment and Plan (1) Leukocytosis Current Visit: Yes Status: Acute Priority: Medium Code(s): D72.829 - ELEVATED WHITE BLOOD CELL COUNT, UNSPECIFIED SNOMED Code(s): 712677118 (2) Acute renal failure Current Visit: Yes Status: Acute Priority: High Code(s): N17.9 - ACUTE KIDNEY FAILURE, UNSPECIFIED SNOMED Code(s): 22289165 (3) Hyponatremia Current Visit: Yes Status: Acute Priority: High Code(s): E87.1 - HYPO- OSMOLALITY AND HYPONATREMIA SNOMED Code(s): 94043955 (4) Anemia Current Visit: Yes Status: Acute Priority: Medium Code(s): D64.9 - ANEMIA, UNSPECIFIED SNOMED Code(s): 427573383 Plan: Acute renal failure -Nephrology consulted -Patient is receiving hydration -Renal ultrasound reporting no hydronephrosis -Improved BUN/Cr today Leukocytosis -Mostly neutrophilia, improved since admit Anemia -Normocytic normochromic -Patient reports trying to take oral iron but cannot tolerate side effects -Iron studies show iron of 12, saturation 4.76%, ferritin of 165. B12 and folate adequate. Pending completion of Nephrology's workup before giving any IV iron. Await their input. CTAP without contrast showing bilateral inguinal adenopathy -Largest 6.3 x 2.9 cm. Subpleural soft tissue thickening at the posterior medial left lung base, probably pleural parenchymal scarring. -Patient understands concern with findings. Recommend imaging with contrast. CT of the chest based on patient's smoking history and hyponatremia is certainly reasonable. Once we have more information can determine who best to ask for biopsy, if one is needed. -Patient reporting 22 months of bilateral lower extremity nonhealing, ulcerations could account for inguinal lymphadenopathy? Await contrast imaging studies Pt understands concerns and plan and is agreeable to cont work up, awaiting renal function improvement
[2023-07-04 19:56] LABS: % Iron Saturation 9.19 (12.00-45.00)
[2023-07-05 09:16] LABS: Basophils % (A) 1 %; Eosinophils # (A) 0.2 k/uL (0-0.7); Eosinophils % (A) 4 %; HCT 28.2 % (34.0-46.0); Lymphocytes # (A) 1.5 k/uL (1.0-4.8); Lymphocytes % (A) 25 %; MCH 31.9 pg (25.0-35.0); MCHC 31.9 g/dL (31.0-37.0); MCV 99.9 fL (80.0-100.0); Mean Platelet Volume 7.8; Monocytes # (A) 0.3 k/uL (0-1.0); Monocytes % (A) 5 %; Neutrophils # (A) 3.7 k/uL (1.3-7.7); Neutrophils % (A) 63 %; Platelet Count 265 k/uL (150-450); RBC 2.82 m/uL (3.80-5.40); WBC 5.9 k/uL (3.8-10.6)
[2023-07-05 09:40] LABS: African American GFR (CKD) 37 (>60 ml/min/1.73 sqM); Anion Gap 1 mmol/L; Blood Urea Nitrogen 66 mg/dL (7-17); Calcium 9.1 mg/dL (8.4-10.2); Carbon Dioxide 32 mmol/L (22-30); Chloride 104 mmol/L (98-107); Glucose 95 mg/dL (74-99); Magnesium 1.5 mg/dL (1.6-2.3); Non-African American GFR(CKD) 32 (>60 ml/min/1.73 sqM); Potassium 4.1 mmol/L (3.5-5.1); Sodium 137 mmol/L (137-145)
[2023-07-05 11:29] VITALS: BP 147/76; PULSE 83; RESP 16; TEMP 97.6
--- NOTE | 2023-07-05 12:04 | P.PN ---
Subjective Patient is seen in follow-up for acute kidney injury on chronic kidney disease. Renal function improving with IV fluids. Oral intake good. Admits to good urine output. No vomiting or diarrhea. Vital signs are stable. General: No acute distress. HEENT: Head exam is unremarkable. LUNGS: No audible rhonchi or wheezes. HEART: Rate and Rhythm are regular. ABDOMEN: Nontender. EXTREMITITES: Trace edema. Lower extremity wrapped. Objective - Vital Signs Vital signs: Vital Signs Temp 97.6 F 07/05/23 11:15 Pulse 83 07/05/23 11:15 Resp 16 07/05/23 11:15 BP 147/76 07/05/23 11:15 Pulse Ox 99 07/05/23 11:15 FiO2 Intake & Output 07/04/23 07/05/23 07/05/23 18:59 06:59 18:59 Intake Total 990 Output Total 400 Balance 990 -400 Intake: IV 400 Lactated Ringers 1,000 ml 400 @ 50 mls/hr IV .Q20H [facility] Rx#:[id number] Oral 590 Output: Urine 400 Other: Voiding Method Toilet Toilet Toilet - Labs CBC & Chem 7: 07/05/23 08:27 07/05/23 08:27 Labs: Abnormal Lab Results - Last 24 Hours (Table) 07/04/23 07/05/23 07/05/23 Range/Units 09:06 08:27 08:27 RBC 2.82 L (3.80-5.40) m/uL Hgb 9.0 L (11.4-16.0) gm/dL Hct 28.2 L (34.0-46.0) % Carbon Dioxide 32 H (22-30) mmol/L BUN 66 H (7-17) mg/dL Creatinine 1.65 H (0.52-1.04) mg/dL Magnesium 1.5 L (1.6-2.3) mg/dL Iron 25 L (50-170) UG/DL % Saturation 9.19 L (12.00-45.00) Transferrin 194.0 L (204.0-354.0) mg/dL Microbiology - Last 24 Hours (Table) 07/02/23 22:33 Blood Culture - Preliminary Blood 07/02/23 22:18 Blood Culture - Preliminary Blood Assessment and Plan Plan: Assessment: 1. Acute kidney injury secondary to ATN secondary to diuresis/hypovolemia. Creatinine 2.35 on admission and is 1.65 today. UA benign. No hydronephrosis noted on imaging. 2. Chronic kidney disease stage IIIa with baseline creatinine 1.4 in August 2022. Etiology is nephrosclerosis. 3. Hypokalemia from diuresis and hypomagnesemia. Replaced. Better. 4. Hypomagnesemia from poor intake. 5. Hypovolemic hyponatremia improving with IV hydration. Better. 6. Chronic diastolic CHF. 7. Hypertension with chronic kidney disease. Stable. 8. Anemia. Iron deficiency noted. Plan: Maintain gentle IV hydration. Continue to hold diuretics. Increase magnesium oxide frequency to twice daily. Avoid nephrotoxins. Continue to monitor renal function and urine output. Hold amlodipine for systolic blood pressure less than 120. Add IV iron.
[2023-07-05] MEDS: SODIUM FERRIC GLUCONAT-SUCROSE 125 MG in SODIUM CHLORIDE 0.9% 100 ML IVPB SCH (12:39)
--- NOTE | 2023-07-05 13:30 | P.PN ---
Subjective Progress Note Date: 07/05/23 Reason for Consult (text): known patient History of present illness: History of present illness: This is a 67-year-old female patient of Dr. Laurita Mark with past medical history of COPD, chronic hypoxic respiratory failure on home O2, chronic diastolic heart failure, hypertension. Patient was recently seen in the office on June 11 at which time she had weight gain and she was advised to resume metolazone and continue Demadex and lab work was obtained which was abnormal and when this was reported back, patient was contacted, to the hospital for further evaluation and treatment. Patient states that she is feeling well but has been extremely weak and may be some confusion per the family. Patient has been started on IV fluids at 130 cc/h. She is seen today in the emergency center waiting for bed to cardiac stepdown unit. Nephrology is also on consult. Chest x-ray: Increased interstitial markings may be in part related to vascular crowding from hypoventilatory changes. CT of the abdomen pelvis without contrast revealed bilateral inguinal adenopathy. Cholelithiasis. Soft tissue thickening of the posterior medial left lung base probably pleural-parenchymal scarring. Renal ultrasound was limited detailed proximal assessment of the kidneys. No obvious hydronephrosis. Initial WBC 30.1 and now 17.3, hemoglobin 8.8, platelet count 269. Initial sodium 129 now 132, potassium is 2.6, chloride 95, BUN initially 126 now 113 and creatinine initially 2.35 followed by 2.29. Blood sugar 144. Lactic acid was 0.8. Magnesium 1.4 and 1.3. Troponin 0.066. Liver function tests essentially normal. Home cardiac medications: Losartan 50 mg daily, metolazone 2.5 mg twice daily, torsemide 40 mg daily, sodium chloride tabs 1 g daily, potassium chloride 60 mEq daily. 07/04 Patient is seen today in follow-up on the cardiac stepdown unit. She states she had a very rough night. She accidentally pulled out her IV during the night. She states she has not had any sleep. No complaints of chest pain. Repeat blood work reveals sodium 136, potassium 3.9, BUN 83 creatinine 1.79. Patient is off IV fluids. Potassium and magnesium have been replaced. Blood pressure 125/67, heart rate in the 70s, pulse ox 99% on 2 L nasal cannula. Echocardiogram reveals EF 55 to 60%, mild increased left ventricular wall thickness. Trace mitral regurgitation, mild tricuspid regurgitation. 07/05 Patient is anticipating discharge home today. Blood pressure 147/76, heart rate 83, pulse ox 99% on 2 L nasal cannula. Renal function is improving with BUN 66, creatinine 1.65. Potassium is 4.1, hemoglobin 9.0. Nephrology has made medication changes to increase magnesium oxide and added iron infusion for 3 days and recommend continuing to hold diuretics. Physical examination: Gen: This is a 67-year-old female appears to be in no acute distress. VS: reviewed blood pressure 1 HEENT: Head is atraumatic, normocephalic. Pupils equal, round. Sclerae is anicteric. NECK: Supple. No JVD. LUNGS: Clear to auscultation. No wheezes or rhonchi. No intercostal retractions. HEART: Regular rate and rhythm. No murmur. ABDOMEN: Soft No tenderness. EXTREMITIES: Tr pedal edema. No calf tenderness. NEUROLOGICAL: Patient is awake, alert and oriented x3. Assessment: Electrolyte abnormalities with hyponatremia, hypokalemia, hypomagnesemia Acute kidney injury Leukocytosis of unclear etiology Chronic diastolic heart failure Hypertension COPD Chronic hypoxic respiratory failure on home O2 Plan: Continue patient's home cardiac medications Further recommendations to follow based upon clinical course Nurse practitioner note has been reviewed, I agree with documented findings and plan of care. Patient was seen and examined. Objective - Vital Signs Vital signs: Vital Signs Temp 97.6 F 07/05/23 11:15 Pulse 83 07/05/23 11:15 Resp 16 07/05/23 11:15 BP 147/76 07/05/23 11:15 Pulse Ox 99 07/05/23 11:15 FiO2 Intake & Output 07/04/23 07/05/23 07/05/23 18:59 06:59 18:59 Intake Total 990 Output Total 400 Balance 990 -400 Intake: IV 400 Lactated Ringers 1,000 ml 400 @ 50 mls/hr IV .Q20H [facility] Rx#:[id number] Oral 590 Output: Urine 400 Other: Voiding Method Toilet Toilet Toilet - Labs CBC & Chem 7: 07/05/23 08:27 07/05/23 08:27 Labs: Abnormal Lab Results - Last 24 Hours (Table) 07/04/23 07/05/23 07/05/23 Range/Units 09:06 08:27 08:27 RBC 2.82 L (3.80-5.40) m/uL Hgb 9.0 L (11.4-16.0) gm/dL Hct 28.2 L (34.0-46.0) % Carbon Dioxide 32 H (22-30) mmol/L BUN 66 H (7-17) mg/dL Creatinine 1.65 H (0.52-1.04) mg/dL Magnesium 1.5 L (1.6-2.3) mg/dL Iron 25 L (50-170) UG/DL % Saturation 9.19 L (12.00-45.00) Transferrin 194.0 L (204.0-354.0) mg/dL Microbiology - Last 24 Hours (Table) 07/02/23 22:33 Blood Culture - Preliminary Blood 07/02/23 22:18 Blood Culture - Preliminary Blood
--- NOTE | 2023-07-05 17:43 | P.DS ---
Providers Date of admission: 07/02/23 21:50 Expected date of discharge: 07/05/23 Attending physician: Mauricio Nair Consults: 07/02/23 21:48 Consult Physician Routine Consulting Provider: Leti Mackey Consult Reason/Comments: leukocytosis Do you want consulting provider notified?: Yes Consult Physician Routine Consulting Provider: Gianni Ruffin Consult Reason/Comments: renalFail Do you want consulting provider notified?: Yes 07/02/23 22:28 Consult Physician Routine Consulting Provider: Shannen Tian Consult Reason/Comments: knosn Do you want consulting provider notified?: Yes Primary care physician: [employer] Hospital Course: Chief Complaint: Abnormal labs This is a pleasant 67-year-old patient who follows with Dr. Champion.. Chronic stable medical conditions include CHF, COPD, hypertension, hyperlipidemia, osteoarthritis, constipation. Patient sent in for by his executive consultant after patient renal function was found to be getting much worse. Patient is been feeling weak and tired. Appetite is fair. No fever no chills. Patient has wounds on both the lower extremity. Present for more than 2 years. Wound care is being carried out. Patient is accompanied by his son in the ER. July 04: Admitted with acute kidney injury. Gentle hydration. Renal offensive medications have been held. Creatinine down to 1.79. Laying in bed. Patient also being followed by wound care team. July 05: Doing better. Patient says she feels over 80% better. Creatinine 1.65. Discussed with Dr. Ruffin. Discharge home patient off diuretics. She will follow-up with both cardiology and nephrology. Questions answered. Referral also given for wound care follow-up. Care discussed with the patient her son and daughter at the bedside. Discussion and discharge planning more than 35 minutes Social history: Patient's son lives with her. Smokes a pack a day for about 45 years stopped about 2 years ago. Does use a cane. Physical examination: VITAL SIGNS: 97.6, 80/3, 16, 147 x 76, 99% on 2 L GENERAL: Sitting up, in chair, eating lunch EYES: Pupils equal. Conjunctiva tutu l. HEENT: External appearance of nose and ears normal, oral cavity grossly normal. NECK: JVD not raised; masses not palpable. HEART: First and second heart sounds are normal; no edema. LUNGS: Respiratory rate normal; decreased breath sounds. ABDOMEN: Soft, nontender, liver spleen not palpable, no masses palpable. PSYCH: Alert and oriented x3; mood and affect tutu l. MUSCULOSKELETAL:No Clubbing/cyanosis;muscles-grossly intact. OA DERMATOLOGICAL: Bilateral lower extremity wounds. Covered with dressing INVESTIGATIONS, reviewed in the clinical context: July 05: White count 5.9 hemoglobin 9 potassium 4.1 BUN 66 creatinine 1.65 magnesium 1.5 2D echocardiogram: [July 04] left ventricular function 55 to 60%. July 04: Potassium 3.9 BUN 83 creatinine 1.79 Iron 12 TIBC 252% saturation 4.76 transferrin 180 Vitamin B12 651 folate 40 July 03: White count 7.3 hemoglobin 8.8 platelets 269 sodium 132 potassium 2.6 BUN 113 creatinine 2.29 Troponin I 0.066 July 02: White count 13.1, hemoglobin 9.6 platelets 315 sodium 129 potassium 3.2 BUN 126 creatinine 2.35 Chest x-ray film personally reviewed by me-some cardiomegaly Abdomen pelvis CT: Bilateral inguinal adenopathy gallstones. Assessment and plan: -Acute on chronic kidney disease. Likely ATN. Hold off any renal of NSAID medications. Hold Zaroxolyn. And torsemide. IV hydration Currently discharged off diuretics. -Peripheral neuropathy Neurontin -GERD Omeprazole -Chronic congestive heart failure EF diastolic dysfunction EF 55 to 60% Fluid restriction -Multiple sites nonhealing ulceration limited to skin breakdown bilateral lower extremity. Follow-up with wound care team -COPD no prior smoker Albuterol as needed -Hyperlipidemia -Essential hypertension Losartan -Obesity BMI 35.9 Weight loss measures Disposition: Home Labs: BMP: 4 to 5 days Past Medical History Past Medical History: Heart Failure, COPD, Hyperlipidemia, Hypertension, Renal Disease Additional Past Medical History / Comment(s): liver disease Past Surgical History: Back Surgery, Orthopedic Surgery Additional Past Surgical History / Comment(s): facial reconstructions Smoking Status: Former smoker Plan - Discharge Summary Discharge Rx Participant: Yes New Discharge Prescriptions: New amLODIPine [Norvasc] 5 mg PO DAILY #90 tab Magnesium Oxide [Mag-Ox] 400 mg PO BID #60 tab Continue Pantoprazole [Protonix] 40 mg PO DAILY Multivit-Min/FA/Lycopen/Lutein [Centrum Silver Tablet] 1 tab PO DAILY LORazepam [Ativan] 0.5 mg PO DAILY PRN PRN Reason: Anxiety methocarbamoL 500 mg PO TID PRN PRN Reason: Muscle Spasm hydrOXYzine HCL [Atarax] 50 mg PO TID Losartan Potassium 50 mg PO DAILY Ferrous Sulfate [Iron (65 MG Elemental)] 325 mg PO DAILY Fluticasone/Umeclidin/Vilanter [Trelegy Ellipta 100-62.5-25] 1 puff INHALATION RT-DAILY HYDROcodone/APAP 10-325MG [[place] 10-325] 1 tab PO QID PRN PRN Reason: Pain Gabapentin [Neurontin] 300 mg PO BID allopurinoL [Zyloprim] 100 mg PO DAILY Discontinued Docusate [Colace] 100 mg PO TID Sodium Chloride Tab 1 gm PO DAILY Omeprazole 40 mg PO DAILY PRN PRN Reason: acid reflux Torsemide [Soaanz] 40 mg PO DAILY metOLazone [Zaroxolyn] 2.5 mg PO BID Potassium Chloride ER [K-Dur 10] 60 meq PO W/BRKFST Discharge Medication List Ferrous Sulfate [Iron (65 MG Elemental)] 325 mg PO DAILY 07/02/23 [History] Fluticasone/Umeclidin/Vilanter [Trelegy Ellipta 100-62.5-25] 1 puff INHALATION RT-DAILY 07/02/23 [History] Gabapentin [Neurontin] 300 mg PO BID 07/02/23 [History] HYDROcodone/APAP 10-325MG [[place] 10-325] 1 tab PO QID PRN 07/02/23 [History] LORazepam [Ativan] 0.5 mg PO DAILY PRN 07/02/23 [History] Losartan Potassium 50 mg PO DAILY 07/02/23 [History] Multivit-Min/FA/Lycopen/Lutein [Centrum Silver Tablet] 1 tab PO DAILY 07/02/23 [History] Pantoprazole [Protonix] 40 mg PO DAILY 07/02/23 [History] allopurinoL [Zyloprim] 100 mg PO DAILY 07/02/23 [History] hydrOXYzine HCL [Atarax] 50 mg PO TID 07/02/23 [History] methocarbamoL 500 mg PO TID PRN 07/02/23 [History] Magnesium Oxide [Mag-Ox] 400 mg PO BID #60 tab 07/05/23 [Rx] amLODIPine [Norvasc] 5 mg PO DAILY #90 tab 07/05/23 [Rx] Follow up Appointment(s)/Referral(s): [facility], [NON-STAFF] - Mike Champion MD [Primary Care Provider] - 1-2 days Gianni Ruffin DO [STAFF PHYSICIAN] - 1 Week Dillon Mark MD [STAFF PHYSICIAN] - 07/25/23 3:45 pm Activity/Diet/Wound Care/Special Instructions: wound care You must get retesting done at your primary care doctor for home O2 renewal. Discharge Disposition: HOME WITH HOME HEALTH SERVICES
[2023-07-05] MEDS ORDERED: MAGNESIUM OXIDE 400 MG TAB PO SCH (21:00)
--- NOTE | 2023-07-06 10:33 | P.PN ---
Subjective Progress Note Date: 07/05/23 Pt resting comfortably in bed. No acute events. Reporting improvement in symptoms. Plan for discharge today Objective - Vital Signs Vital signs: Vital Signs Temp 97.6 F 07/05/23 11:15 Pulse 83 07/05/23 11:15 Resp 16 07/05/23 11:15 BP 147/76 07/05/23 11:15 Pulse Ox 99 07/05/23 11:15 FiO2 Intake & Output 07/04/23 07/05/23 07/05/23 18:59 06:59 18:59 Intake Total 990 350 Output Total 400 Balance 990 -400 350 Intake: IV 400 Lactated Ringers 1,000 ml 400 @ 50 mls/hr IV .Q20H [facility] Rx#:[id number] Oral 590 350 Output: Urine 400 Other: Voiding Method Toilet Toilet Toilet - Constitutional General appearance: Present: average body habitus, no acute distress - EENT Eyes: Present: anicteric sclerae, EOMI ENT: Present: hearing grossly normal - Respiratory Details: breathing is even and unlabored - Cardiovascular Details: skin warm and dry - Gastrointestinal Gastrointestinal Comment(s): no palpable inguinal masses noted General gastrointestinal: Present: soft, tenderness - Integumentary Integumentary: Absent: cyanotic - Neurologic Neurologic: Present: CNII-XII intact - Musculoskeletal Musculoskeletal: Present: strength equal bilaterally - Psychiatric Psychiatric: Present: A&O x's 3 - Labs CBC & Chem 7: 07/05/23 08:27 07/05/23 08:27 Labs: Abnormal Lab Results - Last 24 Hours (Table) 07/04/23 07/05/23 07/05/23 Range/Units 09:06 08:27 08:27 RBC 2.82 L (3.80-5.40) m/uL Hgb 9.0 L (11.4-16.0) gm/dL Hct 28.2 L (34.0-46.0) % Carbon Dioxide 32 H (22-30) mmol/L BUN 66 H (7-17) mg/dL Creatinine 1.65 H (0.52-1.04) mg/dL Magnesium 1.5 L (1.6-2.3) mg/dL Iron 25 L (50-170) UG/DL % Saturation 9.19 L (12.00-45.00) Transferrin 194.0 L (204.0-354.0) mg/dL Microbiology - Last 24 Hours (Table) 07/02/23 22:33 Blood Culture - Preliminary Blood 07/02/23 22:18 Blood Culture - Preliminary Blood Assessment and Plan (1) MAXINE (acute kidney injury) Status: Acute Priority: High Code(s): N17.9 - ACUTE KIDNEY FAILURE, UNSPECIFIED SNOMED Code(s): 87684424 (2) Anemia Status: Acute Priority: Medium Code(s): D64.9 - ANEMIA, UNSPECIFIED SNOMED Code(s): 330154652 (3) Leukocytosis Status: Acute Priority: Medium Code(s): D72.829 - ELEVATED WHITE BLOOD CELL COUNT, UNSPECIFIED SNOMED Code(s): 746582875 Plan: Acute renal failure -Nephrology consulted -Patient is receiving hydration -Renal ultrasound reporting no hydronephrosis -Improved BUN/Cr today Leukocytosis -Mostly neutrophilia, improved since admit, normal range today Anemia -Normocytic normochromic -Patient reports trying to take oral iron but cannot tolerate side effects -Iron studies show iron of 12, saturation 4.76%, ferritin of 165. B12 and folate adequate. Pending completion of Nephrology's workup before giving any IV iron. Await their input. CTAP without contrast showing bilateral inguinal adenopathy -Largest 6.3 x 2.9 cm. Subpleural soft tissue thickening at the posterior medial left lung base, probably pleural parenchymal scarring. -Patient understands concern with findings. Recommend imaging with contrast. CT of the chest based on patient's smoking history and hyponatremia is certainly reasonable. Once we have more information can determine who best to ask for biopsy, if one is needed. -Patient reporting 22 months of bilateral lower extremity nonhealing, ulcerations which could account for inguinal lymphadenopathy. -Plan is for discharge today, will schedule clinic f/u in 2-3 weeks, and recheck kidney function. Once normal will proceed with CT CAP w/ contrast to reevaluate adenopathy as well as to r/o chest findings. Pending scan findings, will proceed with referral for biopsy if warranted Pt verbalizes understanding and is agreeable Doctor attests: I performed a history and physical examination of this patient, developed impression and plan of care. Discussed with dictator. I agree with dictators note, documented as a scribe.
[2023-07-06 18:09] LABS: Methylmalonic Acid 0.74 umol/L (<0.40)
== END 2023-07-05 14:17 | disposition home health service (06) | DRG 683 ==
LOC: EC 18:30 → 3SCARD 21:50
PROVIDERS: ADMIT Hospitalist; ATTEND Hospitalist
DX: N17.0 Acute kidney failure with tubular necrosis (principal); E87.1 Hypo-osmolality and hyponatremia; I13.0 Hypertensive heart and chronic kidney disease with heart failure and stage 1 through stage 4 chronic kidney disease, or unspecified chronic kidney disease; J96.11 Chronic respiratory failure with hypoxia; I50.32 Chronic diastolic (congestive) heart failure; I87.333 Chronic venous hypertension (idiopathic) with ulcer and inflammation of bilateral lower extremity; L97.911 Non-pressure chronic ulcer of unspecified part of right lower leg limited to breakdown of skin; L97.921 Non-pressure chronic ulcer of unspecified part of left lower leg limited to breakdown of skin; J44.9 Chronic obstructive pulmonary disease, unspecified; I27.22 Pulmonary hypertension due to left heart disease; D63.1 Anemia in chronic kidney disease; E66.9 Obesity, unspecified; N18.31 Chronic kidney disease, stage 3a; I08.1 Rheumatic disorders of both mitral and tricuspid valves; D50.9 Iron deficiency anemia, unspecified; G62.9 Polyneuropathy, unspecified; K80.20 Calculus of gallbladder without cholecystitis without obstruction; E86.1 Hypovolemia; D72.828 Other elevated white blood cell count; T50.2X5A Adverse effect of carbonic-anhydrase inhibitors, benzothiadiazides and other diuretics, initial encounter; E83.42 Hypomagnesemia; E87.6 Hypokalemia; Z99.81 Dependence on supplemental oxygen; Z68.35 Body mass index [BMI] 35.0-35.9, adult; Z79.891 Long term (current) use of opiate analgesic; K59.09 Other constipation; M19.90 Unspecified osteoarthritis, unspecified site; K21.9 Gastro-esophageal reflux disease without esophagitis; R59.0 Localized enlarged lymph nodes; E86.0 Dehydration; E78.5 Hyperlipidemia, unspecified; Z87.891 Personal history of nicotine dependence; Z79.51 Long term (current) use of inhaled steroids; Z79.899 Other long term (current) drug therapy; Z88.0 Allergy status to penicillin; Z88.1 Allergy status to other antibiotic agents
CPT/HCPCS: 36415; 71046; 74176; 76770; 80048; 80053; 81001; 82525; 82607; 82728; 82746; 83540; 83550; 83605; 83735; 83921; 84100; 84484; 85025; 85045; 85610; 85730; 87040; 93005; 93306; 94640; 94760; 96361; 96365; 96366; 96367; 99285